=== PATIENT | female | born 1935 | race Caucasian/White ===

== ENCOUNTER 2017-07-27 08:47 | Emergency (ER) | payer MEDICARE ==
[~2017-07-27 08:47] MED LIST: ALBUTEROL SULFATE PO; AMLO5TAB2 PO; DIPH25CA85 PO; IBUP-2077 PO; L.AC1CAP6 PO; LEVO500T89 PO; LOSA1TAB42 PO; MONT10TA24 PO; NAPR-1023 PO; OMEGA Q PLUS PO; PANT40TA25 PO; PRAMIPEXOLE PO; PRAV10TA39 PO; TERA10CA4 PO; TRAM50TA4 PO; TURM1CAP PO; VITAMIN B6 PO; [UNRECOGNIZED DRUG - OTHER] PO; [UNRECOGNIZED DRUG - OTHER] PO; [UNRECOGNIZED DRUG - OTHER] PO
[2017-07-27] MEDS ORDERED: MORPHINE SULFATE 2 MG/ML 1ML SYG ONE (09:57)
[2017-07-27] MEDS ORDERED: ONDANSETRON HCL 4 MG/2 ML VIAL ONE (09:57)
[2017-07-27 10:16] LABS: BASOPHILS % (AUTO) 1.1 % (0.0-5.0); EOSINOPHILS % (AUTO) 2.3 % (0.0-8.0); HEMATOCRIT 37.1 % (36-48); LYMPHOCYTES % (AUTO) 15.9 % (21.0-51.0); MEAN CORPUSCULAR HEMOGLOBIN 30.4 pg (27.0-33.0); MEAN CORPUSCULAR HGB CONC 33.8 g/dL (32.0-36.0); MEAN CORPUSCULAR VOLUME 89.9 fL (79-99); MONOCYTES % (AUTO) 7.6 % (3.0-13.0); NEUTROPHILS % (AUTO) 73.1 % (40.0-77.0); PLATELET COUNT (AUTO) 338 K/uL (130-400); RED BLOOD CELL COUNT(AUTO) 4.13 MIL/uL (4.00-5.50); RED CELL DISTRIBUTION WIDTH 13.2 % (11.0-15.5); WHITE BLOOD COUNT (AUTO) 10.4 K/uL (4.8-10.8)
[2017-07-27 10:23] LABS: CREATININE 1.1 mg/dL (0.5-1.5); POTASSIUM 4.2 mmol/L (3.5-5.1)
[2017-07-27 10:28] LABS: ALBUMIN 3.3 g/dL (3.5-5.0); BILIRUBIN,TOTAL 0.6 mg/dL (0.2-1.0); TOTAL PROTEIN, SERUM 7.3 g/dL (6.0-8.3)
[2017-07-27 11:12] LABS: APPEARANCE,URINE Clear (CLEAR); BILIRUBIN,URINE Negative (NEGATIVE); COLOR,URINE Yellow (YELLOW); GLUCOSE, URINE (UA) Negative (NEGATIVE); KETONES,URINE Negative (NEGATIVE); LEUKOCYTE ESTERASE ,URINE Trace (NEGATIVE); NITRATE,URINE Negative (NEGATIVE); OCCULT BLOOD,URINE Negative (NEGATIVE); PH,URINE 6.5 (5.0-8.0); PROTEIN,URINE Negative (NEGATIVE); UROBILINOGEN,URINE 0.2 mg/dL (0.2-1.0)
[2017-07-27 11:28] LABS: BACTERIA,URINE Rare /HPF (None Seen); SQUAMOUS EPITHELIAL CELL,UR Rare /LPF (0-2); WBC,URINE 0-1 /HPF (0-1)
[2017-07-27] MEDS ORDERED: HYDROMORPHONE HCL 2 MG/ML VIAL ONE (11:59)
[2017-07-27] MEDS ORDERED: FENTANYL 25 MCG/HR PATCH TD ONE (14:06)
== END 2017-07-27 14:48 | disposition home or self-care (01) ==
LOC: EDH 08:47
DX: N13.30 Unspecified hydronephrosis (principal); I10 Essential (primary) hypertension; J45.909 Unspecified asthma, uncomplicated
CPT/HCPCS: 36415; 74176; 80053; 81001; 85025; 96374; 96375; 99285; J1170; J2405

== ENCOUNTER 2017-09-08 10:27 | Emergency (ER) | payer MEDICARE ==
[2017-09-08 11:02] LABS: APPEARANCE,URINE Clear (CLEAR); BILIRUBIN,URINE Negative (NEGATIVE); COLOR,URINE Yellow (YELLOW); GLUCOSE, URINE (UA) Negative (NEGATIVE); KETONES,URINE Negative (NEGATIVE); LEUKOCYTE ESTERASE ,URINE Trace (NEGATIVE); NITRATE,URINE Negative (NEGATIVE); OCCULT BLOOD,URINE Negative (NEGATIVE); PH,URINE 8.5 (5.0-8.0); PROTEIN,URINE Negative (NEGATIVE); UROBILINOGEN,URINE 0.2 mg/dL (0.2-1.0)
[2017-09-08 11:15] LABS: BACTERIA,URINE Rare /HPF (None Seen); WBC,URINE 0-1 /HPF (0-1)
[2017-09-08 11:16] LABS: SQUAMOUS EPITHELIAL CELL,UR Rare /HPF (0-2)
[2017-09-08 11:42] LABS: BASOPHILS % (AUTO) 0.8 % (0.0-5.0); EOSINOPHILS % (AUTO) 1.8 % (0.0-8.0); HEMATOCRIT 36.3 % (36-48); LYMPHOCYTES % (AUTO) 16.7 % (21.0-51.0); MEAN CORPUSCULAR HEMOGLOBIN 29.6 pg (27.0-33.0); MEAN CORPUSCULAR HGB CONC 33.5 g/dL (32.0-36.0); MEAN CORPUSCULAR VOLUME 88.3 fL (79-99); MONOCYTES % (AUTO) 7.6 % (3.0-13.0); NEUTROPHILS % (AUTO) 73.1 % (40.0-77.0); NUCLEATED RED BLOOD CELLS 0.1 % (0.0-0.19); PLATELET COUNT (AUTO) 250 K/uL (130-400); RED BLOOD CELL COUNT(AUTO) 4.11 MIL/uL (4.00-5.50); RED CELL DISTRIBUTION WIDTH 14.2 % (11.0-15.5); WHITE BLOOD COUNT (AUTO) 8.4 K/uL (4.8-10.8)
[2017-09-08] MEDS ORDERED: MORPHINE SULFATE 4 MG/1ML SYG ONE (11:53)
[2017-09-08] MEDS ORDERED: ONDANSETRON ODT 4 MG TAB ONE (11:54)
[2017-09-08 12:09] LABS: POTASSIUM 3.6 mmol/L (3.5-5.1)
[2017-09-08 12:13] LABS: ALBUMIN 3.6 g/dL (3.5-5.0); BILIRUBIN,TOTAL 0.9 mg/dL (0.2-1.0); TOTAL PROTEIN, SERUM 7.5 g/dL (6.0-8.3)
== END 2017-09-08 13:05 | disposition home or self-care (01) ==
LOC: EDH 10:27
DX: G89.29 Other chronic pain (principal); M54.5 Low back pain; J42 Unspecified chronic bronchitis; J45.909 Unspecified asthma, uncomplicated; I10 Essential (primary) hypertension
CPT/HCPCS: 36415; 80053; 81001; 82150; 83690; 85025; 96374; 99284; J2270

== ENCOUNTER 2017-11-20 04:42 | Emergency (ER) | payer MEDICARE ==
[2017-11-20] MEDS ORDERED: HYDROCODONE/ACETAMINOPHEN 7.5/325 MG 15 ML UDCUP ONE (05:03)
[2017-11-20 05:23] LABS: BASOPHILS % (AUTO) 0.9 % (0.0-5.0); EOSINOPHILS % (AUTO) 3.3 % (0.0-8.0); HEMATOCRIT 34.8 % (36-48); MEAN CORPUSCULAR HEMOGLOBIN 30.5 pg (27.0-33.0); MEAN CORPUSCULAR HGB CONC 34.1 g/dL (32.0-36.0); MEAN CORPUSCULAR VOLUME 89.6 fL (79-99); MONOCYTES % (AUTO) 7.1 % (3.0-13.0); NEUTROPHILS % (AUTO) 62.7 % (40.0-77.0); PLATELET COUNT (AUTO) 292 K/uL (130-400); RED BLOOD CELL COUNT(AUTO) 3.89 MIL/uL (4.00-5.50); RED CELL DISTRIBUTION WIDTH 14.9 % (11.0-15.5); WHITE BLOOD COUNT (AUTO) 7.5 K/uL (4.8-10.8)
[2017-11-20 05:32] LABS: APPEARANCE,URINE Cloudy (CLEAR); BILIRUBIN,URINE Negative (NEGATIVE); COLOR,URINE Yellow (YELLOW); GLUCOSE, URINE (UA) Negative (NEGATIVE); KETONES,URINE Negative (NEGATIVE); LEUKOCYTE ESTERASE ,URINE Large (NEGATIVE); NITRATE,URINE Negative (NEGATIVE); OCCULT BLOOD,URINE Trace (NEGATIVE); PH,URINE 7.5 (5.0-8.0); PROTEIN,URINE Negative (NEGATIVE); UROBILINOGEN,URINE 0.2 mg/dL (0.2-1.0)
[2017-11-20 05:33] LABS: POTASSIUM 3.7 mmol/L (3.5-5.1)
[2017-11-20 05:37] LABS: ALBUMIN 3.3 g/dL (3.5-5.0); BILIRUBIN,TOTAL 0.7 mg/dL (0.2-1.0); TOTAL PROTEIN, SERUM 6.9 g/dL (6.0-8.3)
[2017-11-20] MEDS ORDERED: CEFTRIAXONE SODIUM 1 GM ONE (05:48)
[2017-11-20] MEDS ORDERED: LIDOCAINE HCL-MPF 1% 2ML VIAL ONE (05:48)
[2017-11-20 05:52] LABS: BACTERIA,URINE Few /HPF (None Seen)
== END 2017-11-20 06:09 | disposition home or self-care (01) ==
LOC: EDH 04:42
DX: G89.29 Other chronic pain (principal); M54.5 Low back pain; J45.909 Unspecified asthma, uncomplicated; M19.90 Unspecified osteoarthritis, unspecified site; I10 Essential (primary) hypertension
CPT/HCPCS: 36415; 80053; 81001; 85025; 96372; 99284; J0696; J3490

== ENCOUNTER → 2018-03-11 | Outpatient (CLI) | payer MEDICARE ==
[~2018-03-11] MED LIST changes: -AMLO5TAB2 PO; +AMLO5TAB7 PO; +AMOX-426 PO; +FUROSEMIDE 10 MG/ML 4ML VIAL ONE; +TERA5CAP4 PO
== END | disposition home or self-care (01) ==
LOC: RAH 13:35
PROVIDERS: ATTEND Urology
DX: N13.30 Unspecified hydronephrosis (principal)
CPT/HCPCS: 78708; A9562; J1940

== ENCOUNTER 2018-03-15 16:20 | Inpatient (IN) | payer MEDICARE ==
[~2018-03-15] VITALS: Ht 162.6 cm; Wt 63.5 kg
[~2018-03-15 16:20] MED LIST changes: -AMOX-426 PO; -FUROSEMIDE 10 MG/ML 4ML VIAL ONE; -TERA5CAP4 PO
[2018-03-15] MEDS ORDERED: ONDANSETRON ODT 4 MG TAB ONE (17:40)
[2018-03-15] MEDS ORDERED: HYDROMORPHONE 1 MG/1 ML AMP ONE ×2 (17:41→19:40)
[2018-03-15 18:17] LABS: APPEARANCE,URINE Turbid (CLEAR); BILIRUBIN,URINE Negative (NEGATIVE); COLOR,URINE Yellow (YELLOW); GLUCOSE, URINE (UA) Negative (NEGATIVE); KETONES,URINE Negative (NEGATIVE); LEUKOCYTE ESTERASE ,URINE Large (NEGATIVE); NITRATE,URINE Positive (NEGATIVE); OCCULT BLOOD,URINE Small (NEGATIVE); PH,URINE 7.5 (5.0-8.0); PROTEIN,URINE Trace (NEGATIVE); UROBILINOGEN,URINE 0.2 mg/dL (0.2-1.0)
[2018-03-15 18:18] LABS: BASOPHILS % (AUTO) 0.7 % (0.0-5.0); EOSINOPHILS % (AUTO) 1.8 % (0.0-8.0); HEMATOCRIT 39.1 % (36-48); LYMPHOCYTES % (AUTO) 14.4 % (21.0-51.0); MEAN CORPUSCULAR HEMOGLOBIN 29.8 pg (27.0-33.0); MEAN CORPUSCULAR HGB CONC 32.8 g/dL (32.0-36.0); MEAN CORPUSCULAR VOLUME 90.9 fL (79-99); NEUTROPHILS % (AUTO) 75.1 % (40.0-77.0); PLATELET COUNT (AUTO) 228 K/uL (130-400); RED CELL DISTRIBUTION WIDTH 14.5 % (11.0-15.5); WHITE BLOOD COUNT (AUTO) 10.6 K/uL (4.8-10.8)
[2018-03-15 18:24] LABS: WBC,URINE Full Field /HPF (0-1)
[2018-03-15 18:26] LABS: BACTERIA,URINE Few /HPF (None Seen)
[2018-03-15] MEDS ORDERED: CEFTRIAXONE SODIUM 1 GM ONE (18:35)
[2018-03-15] MEDS ORDERED: SODIUM CHLORIDE 0.9% 100 ML IV ONE (18:35)
[2018-03-15 18:40] LABS: BILIRUBIN,TOTAL 0.7 mg/dL (0.2-1.0); POTASSIUM 3.8 mmol/L (3.5-5.1); TOTAL PROTEIN, SERUM 7.4 g/dL (6.0-8.3)
[2018-03-15 18:45] LABS: ALBUMIN 3.1 g/dL (3.5-5.0); CREATININE 1.3 mg/dL (0.5-1.5)
[2018-03-15] MEDS ORDERED: ONDANSETRON HCL 4 MG/2 ML VIAL ONE (19:53)
[2018-03-15 22:54] VITALS: BP 158/79
[2018-03-16] MEDS ORDERED: TERA5CAP4 PO (01:16)
[2018-03-16] MEDS ORDERED: ONDANSETRON HCL MDV 20ML 2 MG/ML VIAL IVP PRN (01:30)
[2018-03-16] MEDS: LEVOFLOXACIN 500 MG/D5W 100 ML 100 ML IV SCH (01:30)
[2018-03-16] MEDS ORDERED: HYDROMORPHONE 1 MG/1 ML AMP IV PRN (01:30)
[2018-03-16] MEDS ORDERED: ACETAMINOPHEN 325 MG TAB PO PRN (01:30)
[2018-03-16] MEDS ORDERED: MORPHINE SULFATE 2 MG/ML 1ML SYG IV PRN (01:30)
[2018-03-16] MEDS ORDERED: SODIUM CHLORIDE 0.9% 1000ML 1,000 ML IV ONE (01:55)
[2018-03-16] MEDS ORDERED: LEVOFLOXACIN 500 MG/D5W 100 ML 100 ML ONE (01:56)
[2018-03-16 03:00] VITALS: BP 142/70
[2018-03-16 05:39] LABS: BASOPHILS % (AUTO) 0.7 % (0.0-5.0); EOSINOPHILS % (AUTO) 1.1 % (0.0-8.0); HEMATOCRIT 36.3 % (36-48); LYMPHOCYTES % (AUTO) 17.9 % (21.0-51.0); MEAN CORPUSCULAR HEMOGLOBIN 30.9 pg (27.0-33.0); MEAN CORPUSCULAR HGB CONC 33.7 g/dL (32.0-36.0); MEAN CORPUSCULAR VOLUME 91.7 fL (79-99); MONOCYTES % (AUTO) 6.3 % (3.0-13.0); PLATELET COUNT (AUTO) 240 K/uL (130-400); RED BLOOD CELL COUNT(AUTO) 3.96 MIL/uL (4.00-5.50); WHITE BLOOD COUNT (AUTO) 8.7 K/uL (4.8-10.8)
[2018-03-16 05:54] LABS: CREATININE 1.1 mg/dL (0.5-1.5); POTASSIUM 3.9 mmol/L (3.5-5.1)
[2018-03-16 07:30] VITALS: BP 114/52
[2018-03-16] MEDS ORDERED: SIMETHICONE 80 MG TAB.CHEW ONE (09:34)
[2018-03-16] MEDS ORDERED: SIMETHICONE 80 MG TAB.CHEW PO PRN (09:45)
[2018-03-16] MEDS: PANTOPRAZOLE SODIUM 40 MG TABLET.DR PO SCH (10:14)
[2018-03-16] MEDS: SODIUM CHLORIDE 0.9% 1000ML 1,000 ML IV SCH (10:16)
[2018-03-16 10:52] VITALS: BP 128/60
[2018-03-16] MEDS: ALBUTEROL SULFATE 0.083% 2.5 MG/3 ML INH IH SCH ×3 (11:19→23:08)
[2018-03-16] MEDS ORDERED: IOHEXOL-350 75 ML VIAL IV ONE (12:14)
[2018-03-16 16:14] VITALS: BP 123/60
[2018-03-16 19:00] VITALS: BP 139/70
[2018-03-16] MEDS: ATORVASTATIN CALCIUM 10 MG TABLET PO SCH (21:00)
[2018-03-16] MEDS: DIPHENHYDRAMINE HCL 25 MG CAPSULE PO SCH (21:00)
[2018-03-16 23:00] VITALS: BP_SYST 126; BP_SYST 128; BP_DIAS 66
[2018-03-17] VITALS (7 sets, daily range): BP systolic 122–154; BP diastolic 60–84
[2018-03-17] MEDS: LEVOFLOXACIN 500 MG/D5W 100 ML 100 ML IV SCH (01:26)
[2018-03-17 05:54] LABS: BASOPHILS % (AUTO) 0.9 % (0.0-5.0); EOSINOPHILS % (AUTO) 3.7 % (0.0-8.0); HEMATOCRIT 36.6 % (36-48); LYMPHOCYTES % (AUTO) 24.9 % (21.0-51.0); MEAN CORPUSCULAR HEMOGLOBIN 30.6 pg (27.0-33.0); MEAN CORPUSCULAR HGB CONC 33.5 g/dL (32.0-36.0); MEAN CORPUSCULAR VOLUME 91.3 fL (79-99); MONOCYTES % (AUTO) 9.4 % (3.0-13.0); NEUTROPHILS % (AUTO) 61.1 % (40.0-77.0); PLATELET COUNT (AUTO) 209 K/uL (130-400); RED BLOOD CELL COUNT(AUTO) 4.01 MIL/uL (4.00-5.50); WHITE BLOOD COUNT (AUTO) 7.8 K/uL (4.8-10.8)
[2018-03-17 06:01] LABS: CREATININE 0.9 mg/dL (0.5-1.5); POTASSIUM 3.6 mmol/L (3.5-5.1)
[2018-03-17] MEDS: ALBUTEROL SULFATE 0.083% 2.5 MG/3 ML INH IH SCH ×3 (06:04→22:58)
[2018-03-17] MEDS: SODIUM CHLORIDE 0.9% 1000ML 1,000 ML IV SCH ×3 (07:22→21:31)
[2018-03-17] MEDS ORDERED: TURMERIC COMPLEX 500 MG PO SCH (09:00)
[2018-03-17] MEDS ORDERED: MONTELUKAST SODIUM 10 MG TAB PO SCH (09:00)
[2018-03-17] MEDS: PANTOPRAZOLE SODIUM 40 MG TABLET.DR PO SCH (09:00)
[2018-03-17] MEDS ORDERED: TERAZOSIN HCL 5 MG CAPSULE PO SCH (09:00)
[2018-03-17] MEDS ORDERED: PYRIDOXINE 100 MG PO SCH (09:00)
[2018-03-17] MEDS ORDERED: HYDROCHLOROTHIAZIDE 25 MG TABLET PO SCH (09:00)
[2018-03-17] MEDS ORDERED: OMEGA Q PLUS PO SCH (09:00)
[2018-03-17] MEDS ORDERED: LACTOBACILLUS RHAMNOSUS GG 1 EACH CAP.SPRINK PO SCH (09:00)
[2018-03-17] MEDS ORDERED: MULTIVITAMIN TABLET PO SCH (09:00)
[2018-03-17] MEDS ORDERED: LOSARTAN 100 MG TABLET PO SCH (09:00)
[2018-03-17] MEDS ORDERED: AMLODIPINE BESYLATE 5 MG TAB PO SCH (09:00)
[2018-03-17] MEDS: ATORVASTATIN CALCIUM 10 MG TABLET PO SCH (21:31)
[2018-03-17] MEDS: DIPHENHYDRAMINE HCL 25 MG CAPSULE PO SCH (21:31)
[2018-03-18 00:02] VITALS: BP 137/67
[2018-03-18] MEDS: LEVOFLOXACIN 500 MG/D5W 100 ML 100 ML IV SCH (01:29)
[2018-03-18] MEDS: SODIUM CHLORIDE 0.9% 1000ML 1,000 ML IV SCH (03:57)
[2018-03-18 04:25] VITALS: BP 136/68
[2018-03-18] MEDS: ALBUTEROL SULFATE 0.083% 2.5 MG/3 ML INH IH SCH (06:18)
[2018-03-18] MEDS ORDERED: AMOX-426 PO (07:35)
[2018-03-18 08:00] VITALS: BP 149/76
== END 2018-03-18 09:05 | disposition home or self-care (01) | DRG 694 ==
LOC: EDH 16:20 → EDHIP 20:45 → 3BH 21:11
PROVIDERS: ADMIT Hospitalist; ATTEND Hospitalist
DX: N13.30 Unspecified hydronephrosis (principal); E87.1 Hypo-osmolality and hyponatremia; E44.1 Mild protein-calorie malnutrition; J44.9 Chronic obstructive pulmonary disease, unspecified; M41.9 Scoliosis, unspecified; M19.90 Unspecified osteoarthritis, unspecified site; I10 Essential (primary) hypertension; Z68.24 Body mass index [BMI] 24.0-24.9, adult; Z83.3 Family history of diabetes mellitus; Z82.49 Family history of ischemic heart disease and other diseases of the circulatory system; Z80.9 Family history of malignant neoplasm, unspecified
CPT/HCPCS: 36415; 74176; 74400; 80048; 80053; 81001; 82948; 85025; 87077; 87088; 87186; 94640; 94664; J0696; J1170; J1956; J2405; J7030; Q0163; Q9967

== ENCOUNTER 2018-03-31 05:47 | Day surgery (SDC) | payer MEDICARE ==
[2018-03-27 13:03] VITALS: BP 154/71
[~2018-03-31] VITALS: Ht 162.6 cm; Wt 63.8 kg
[2018-03-31] VITALS (14 sets, daily range): BP systolic 122–144; BP diastolic 57–70
[2018-03-31] MEDS: CEFAZOLIN SODIUM 1 GM VIAL IVP SCH ×2 (05:00→07:46)
[~2018-03-31 05:47] MED LIST changes: -IBUP-2077 PO; -L.AC1CAP6 PO; -LEVO500T89 PO; -OMEGA Q PLUS PO; -PRAMIPEXOLE PO; -TERA10CA4 PO; +TERA5CAP4 PO; -TRAM50TA4 PO; -TURM1CAP PO; -[UNRECOGNIZED DRUG - OTHER] PO
[2018-03-31] MEDS ORDERED: PHENYLEPHRINE HCL 10 MG/ML 1ML VIAL IV ONE (06:38)
[2018-03-31] MEDS ORDERED: LIDOCAINE PF 2% 5ML ABBOJECT ONE (06:38)
[2018-03-31] MEDS ORDERED: EPHEDRINE SULFATE 50 MG/ML AMPULE ONE (06:39)
[2018-03-31] MEDS ORDERED: FENTANYL CITRATE PF 50 MCG/1 ML 2ML VIAL ONE (06:39)
[2018-03-31] MEDS ORDERED: PROPOFOL 10 MG/ML 20ML VIAL IV ONE (06:39)
[2018-03-31] MEDS ORDERED: LACTATED RINGERS 1000ML 1,000 ML IV ONE (06:40)
[2018-03-31] MEDS ORDERED: FAMOTIDINE/PF 20 MG/2 ML VIAL IV ONE (06:47)
[2018-03-31] MEDS ORDERED: IOHEXOL-350 50ML VIAL IV ONE (07:35)
== END 2018-03-31 11:00 | disposition home or self-care (01) ==
LOC: DAH 05:47
PROVIDERS: ATTEND Surgery
DX: N13.1 Hydronephrosis with ureteral stricture, not elsewhere classified (principal); I10 Essential (primary) hypertension; K21.9 Gastro-esophageal reflux disease without esophagitis; J44.9 Chronic obstructive pulmonary disease, unspecified; M19.90 Unspecified osteoarthritis, unspecified site; F15.90 Other stimulant use, unspecified, uncomplicated; Z98.890 Other specified postprocedural states; Z98.42 Cataract extraction status, left eye; Z98.41 Cataract extraction status, right eye; Z83.3 Family history of diabetes mellitus; Z82.49 Family history of ischemic heart disease and other diseases of the circulatory system
CPT/HCPCS: 52332; 52342; 74420; 87088; 93005; A4358; A4510; A4600; C1726; C1758; C1769 ×2; C2617; J0690; J2001; J2370; J2704; J3010; J3490 ×2; J7120; Q9967

== ENCOUNTER 2018-04-02 06:33 | Emergency (ER) | payer MEDICARE ==
[~2018-04-02 06:33] MED LIST changes: -TERA5CAP4 PO
[2018-04-02 07:03] LABS: BILIRUBIN,URINE NEGATIVE (NEGATIVE); GLUCOSE, URINE (UA) NEGATIVE (NEGATIVE); KETONES,URINE NEGATIVE (NEGATIVE); LEUKOCYTE ESTERASE ,URINE MODERATE (NEGATIVE); NITRATE,URINE NEGATIVE (NEGATIVE); OCCULT BLOOD,URINE LARGE (NEGATIVE); PH,URINE 7.5 (5.0-8.0); PROTEIN,URINE 100 (NEGATIVE); UROBILINOGEN,URINE 0.2 mg/dL (0.2-1.0)
[2018-04-02 07:31] LABS: RBC,URINE TNTC /HPF (0-1)
[2018-04-02 07:32] LABS: BACTERIA,URINE Rare /HPF (None Seen); SQUAMOUS EPITHELIAL CELL,UR Rare /HPF (0-2); WBC,URINE 0-1 /HPF (0-1)
[2018-04-02 07:34] LABS: TRANSITIONAL EPI CELLS,URINE Rare /HPF (None Seen)
[2018-04-02 07:36] LABS: APPEARANCE,URINE TURBID (CLEAR); COLOR,URINE RED (YELLOW)
[2018-04-02] MEDS ORDERED: LEVOFLOXACIN 500 MG TABLET PO SCH (08:30)
== END 2018-04-02 08:54 | disposition home or self-care (01) ==
LOC: EDH 06:33
DX: R31.9 Hematuria, unspecified (principal); J45.909 Unspecified asthma, uncomplicated; I10 Essential (primary) hypertension
CPT/HCPCS: 81001; 87088

== ENCOUNTER 2018-04-21 06:45 | Day surgery (SDC) | payer MEDICARE ==
[2018-04-15 11:29] LABS: BASOPHILS % (AUTO) 1.1 % (0.0-5.0); HEMATOCRIT 40.2 % (36-48); LYMPHOCYTES % (AUTO) 22.5 % (21.0-51.0); MEAN CORPUSCULAR HEMOGLOBIN 30.2 pg (27.0-33.0); MEAN CORPUSCULAR HGB CONC 33.2 g/dL (32.0-36.0); MEAN CORPUSCULAR VOLUME 90.9 fL (79-99); MONOCYTES % (AUTO) 7.5 % (3.0-13.0); NEUTROPHILS % (AUTO) 64.9 % (40.0-77.0); PLATELET COUNT (AUTO) 314 K/uL (130-400); RED BLOOD CELL COUNT(AUTO) 4.42 MIL/uL (4.00-5.50); RED CELL DISTRIBUTION WIDTH 13.9 % (11.0-15.5); WHITE BLOOD COUNT (AUTO) 10.6 K/uL (4.8-10.8)
[2018-04-15 11:31] VITALS: BP 150/78
[2018-04-15 11:36] LABS: CREATININE 0.9 mg/dL (0.5-1.5); POTASSIUM 4.5 mmol/L (3.5-5.1)
[~2018-04-21] VITALS: Ht 162.6 cm; Wt 63.1 kg
[2018-04-21] VITALS (16 sets, daily range): BP systolic 148–165; BP diastolic 74–89
[~2018-04-21 06:45] MED LIST changes: -ALBUTEROL SULFATE PO; +ASCO500T9 PO; +ASPI-1181 PO; +TERA5CAP4 PO; -VITAMIN B6 PO; -[UNRECOGNIZED DRUG - OTHER] PO; -[UNRECOGNIZED DRUG - OTHER] PO
[2018-04-21] MEDS ORDERED: SODIUM CHLORIDE 0.9% 1000ML 1,000 ML IV ONE (07:16)
[2018-04-21] MEDS ORDERED: LIDOCAINE PF 2% 5ML ABBOJECT ONE (07:17)
[2018-04-21] MEDS ORDERED: DEXAMETHASONE SOD PHOSPHATE 10MG/ML 1ML VIAL ONE (07:17)
[2018-04-21] MEDS ORDERED: PROPOFOL 10 MG/ML 20ML VIAL IV ONE (07:18)
[2018-04-21] MEDS ORDERED: ONDANSETRON HCL 4 MG/2 ML VIAL ONE (07:18)
[2018-04-21] MEDS ORDERED: FENTANYL CITRATE PF 50 MCG/1 ML 2ML VIAL ONE (07:18)
[2018-04-21] MEDS: CEFAZOLIN SODIUM 1 GM VIAL IVP SCH ×2 (07:39→08:18)
[2018-04-21] MEDS ORDERED: LACTATED RINGERS 1000ML 1,000 ML IV ONE (07:41)
[2018-04-21] MEDS ORDERED: IPRATROPIUM/ALBUTEROL SULFATE 3 ML SOLUTION IH ONE (09:18)
== END 2018-04-21 10:06 | disposition home or self-care (01) ==
LOC: DAH 06:45
PROVIDERS: ATTEND Surgery
DX: N13.30 Unspecified hydronephrosis (principal); Z83.3 Family history of diabetes mellitus; Z82.49 Family history of ischemic heart disease and other diseases of the circulatory system; Z98.890 Other specified postprocedural states; Z79.899 Other long term (current) drug therapy; I10 Essential (primary) hypertension; K21.9 Gastro-esophageal reflux disease without esophagitis; M54.5 Low back pain; M54.30 Sciatica, unspecified side; J44.9 Chronic obstructive pulmonary disease, unspecified; M19.90 Unspecified osteoarthritis, unspecified site
CPT/HCPCS: 36415; 52310; 80048; 85025; 87088; 93005; 94640; A4358; J0690; J2001; J2405; J2704; J3010; J7030; J7120; J1100

== ENCOUNTER → 2018-05-20 | Outpatient (CLI) | payer MEDICARE | END | disposition home or self-care (01) | LOC: LAB 11:39 | PROVIDERS: ATTEND Surgery | DX: N13.30 Unspecified hydronephrosis (principal) | CPT/HCPCS: 36415; 82565; 84520 ==

== ENCOUNTER → 2018-05-23 | Outpatient (CLI) | payer MEDICARE ==
[~2018-05-23] MED LIST changes: +IOHEXOL 350 MG/ML 100ML INFUS..BTL IV ONE
== END | disposition home or self-care (01) ==
LOC: RAH 08:42
PROVIDERS: ATTEND Surgery
DX: M41.86 Other forms of scoliosis, lumbar region (principal); M47.896 Other spondylosis, lumbar region; M19.90 Unspecified osteoarthritis, unspecified site
CPT/HCPCS: 74400; Q9967

== ENCOUNTER → 2018-11-05 | Outpatient (CLI) | payer MEDICARE ==
[~2018-11-05] MED LIST changes: -AMLO5TAB7 PO; +AMLO5TAB9 PO; -IOHEXOL 350 MG/ML 100ML INFUS..BTL IV ONE
== END | disposition home or self-care (01) ==
LOC: SHCH 12:38
PROVIDERS: ATTEND Internal Medicine Cardiovascular Disease
DX: I65.23 Occlusion and stenosis of bilateral carotid arteries (principal); I05.8 Other rheumatic mitral valve diseases; I11.9 Hypertensive heart disease without heart failure; I25.10 Atherosclerotic heart disease of native coronary artery without angina pectoris
CPT/HCPCS: 93306; 93880

== ENCOUNTER 2019-05-10 18:25 | Emergency (ER) | payer MEDICARE ==
[2019-05-10 19:03] LABS: BASOPHILS % (AUTO) 0.7 % (0.0-5.0); EOSINOPHILS % (AUTO) 1.5 % (0.0-8.0); HEMATOCRIT 39.2 % (36-48); LYMPHOCYTES % (AUTO) 17.1 % (21.0-51.0); MEAN CORPUSCULAR HEMOGLOBIN 30.9 pg (27.0-33.0); MEAN CORPUSCULAR HGB CONC 33.1 g/dL (32.0-36.0); MEAN CORPUSCULAR VOLUME 93.5 fL (79-99); MONOCYTES % (AUTO) 7.8 % (3.0-13.0); NEUTROPHILS % (AUTO) 72.9 % (40.0-77.0); NUCLEATED RED BLOOD CELLS 0.1 % (0.0-0.19); PLATELET COUNT (AUTO) 220 K/uL (130-400); RED CELL DISTRIBUTION WIDTH 15.3 % (11.0-15.5)
[2019-05-10 19:15] LABS: CREATININE 0.8 mg/dL (0.5-1.5); POTASSIUM 4.2 mmol/L (3.5-5.1)
[2019-05-10] MEDS ORDERED: KETOROLAC TROMETHAMINE 30MG/ML ONE (19:19)
[2019-05-10 19:20] LABS: ALBUMIN 3.5 g/dL (3.5-5.0); BILIRUBIN,DIRECT 0.1 mg/dL (0.0-0.3); BILIRUBIN,TOTAL 0.7 mg/dL (0.2-1.0); TOTAL PROTEIN, SERUM 7.3 g/dL (6.0-8.3)
[2019-05-10] MEDS ORDERED: DIAZEPAM 5 MG TABLET ONE (19:20)
[2019-05-10] MEDS ORDERED: SODIUM CHLORIDE 0.9% 1000ML 1,000 ML IV ONE (19:21)
[2019-05-10 21:01] LABS: APPEARANCE,URINE Cloudy (CLEAR); BILIRUBIN,URINE Negative (NEGATIVE); COLOR,URINE Yellow (YELLOW); GLUCOSE, URINE (UA) Negative (NEGATIVE); KETONES,URINE Negative (NEGATIVE); LEUKOCYTE ESTERASE ,URINE Small (NEGATIVE); NITRATE,URINE Negative (NEGATIVE); OCCULT BLOOD,URINE Negative (NEGATIVE); PROTEIN,URINE POS 1+ mg/dL (NEGATIVE)
[2019-05-10 21:16] LABS: AMORPHOUS SEDIMENT,UR Few /LPF (None Seen); BACTERIA,URINE Moderate /HPF (None Seen); MUCUS,URINE Few LPF (None Seen); SQUAMOUS EPITHELIAL CELL,UR 0-2 /HPF (0-2)
== END 2019-05-10 22:08 | disposition home or self-care (01) ==
LOC: EDH 18:25
DX: R10.9 Unspecified abdominal pain (principal); N13.30 Unspecified hydronephrosis; J45.909 Unspecified asthma, uncomplicated; I10 Essential (primary) hypertension; Z98.890 Other specified postprocedural states
CPT/HCPCS: 36415; 74176; 80048; 80076; 81001; 82550; 83690; 84484; 85025; 93005; 96374; 99285; J1885; J7030

== ENCOUNTER → 2019-07-08 | Outpatient (CLI) | payer MEDICARE | END | disposition home or self-care (01) | LOC: RAH 11:10 | PROVIDERS: ATTEND Urology | DX: N28.89 Other specified disorders of kidney and ureter (principal); N32.89 Other specified disorders of bladder; Q62.11 Congenital occlusion of ureteropelvic junction | CPT/HCPCS: 76770 ==

== ENCOUNTER 2020-02-05 08:05 | Inpatient (IN) | payer MEDICARE ==
[~2020-02-05 08:05] MED LIST changes: +ASCO500T20 PO; -ASCO500T9 PO; -ASPI-1181 PO; +ASPI-1443 PO; -MONT10TA24 PO; +MONT10TA26 PO; -PANT40TA25 PO; +PANT40TA54 PO
[2020-02-05] MEDS ORDERED: ONDANSETRON HCL 4 MG/2 ML VIAL ONE (08:34)
[2020-02-05] MEDS ORDERED: MORPHINE SULFATE 4 MG/1ML SYG ONE (08:34)
[2020-02-05 08:39] LABS: BASOPHILS % (AUTO) 0.5 % (0.0-5.0); EOSINOPHILS % (AUTO) 1.6 % (0.0-8.0); HEMATOCRIT 45.4 % (36-48); LYMPHOCYTES % (AUTO) 24.7 % (21.0-51.0); MEAN CORPUSCULAR HGB CONC 32.2 g/dL (32.0-36.0); MEAN CORPUSCULAR VOLUME 93.2 fL (79-99); MONOCYTES % (AUTO) 6.9 % (3.0-13.0); PLATELET COUNT (AUTO) 246 K/uL (130-400); RED BLOOD CELL COUNT(AUTO) 4.87 MIL/uL (4.00-5.50); RED CELL DISTRIBUTION WIDTH 14.4 % (11.0-15.5); WHITE BLOOD COUNT (AUTO) 10.9 K/uL (4.8-10.8)
[2020-02-05 08:57] LABS: ALBUMIN 3.6 g/dL (3.5-5.0); BILIRUBIN,TOTAL 0.8 mg/dL (0.2-1.0); CREATININE 0.9 mg/dL (0.5-1.5); POTASSIUM 3.7 mmol/L (3.5-5.1); TOTAL PROTEIN, SERUM 7.7 g/dL (6.0-8.3)
[2020-02-05 09:14] LABS: B-TYPE NATRIURETIC PEPTIDE 766 pg/mL (0-100)
[2020-02-05 09:29] LABS: APPEARANCE,URINE Clear (CLEAR); BILIRUBIN,URINE Negative (NEGATIVE); COLOR,URINE Yellow (YELLOW); GLUCOSE, URINE (UA) Negative (NEGATIVE); KETONES,URINE Negative (NEGATIVE); LEUKOCYTE ESTERASE ,URINE Trace (NEGATIVE); NITRATE,URINE Negative (NEGATIVE); OCCULT BLOOD,URINE Negative (NEGATIVE); PROTEIN,URINE POS 1+ mg/dL (NEGATIVE); UROBILINOGEN,URINE 0.2 mg/dL (0.2-1.0)
[2020-02-05 09:48] LABS: RBC,URINE 0-1 /HPF (0-1)
[2020-02-05 09:49] LABS: BACTERIA,URINE Few /HPF (None Seen)
[2020-02-05 09:50] LABS: YEAST,URINE BUDDING Few /HPF (None Seen)
[2020-02-05] MEDS ORDERED: ASPIRIN 325 MG TABLET ONE (10:43)
[2020-02-05] MEDS ORDERED: ACETAMINOPHEN 325 MG TAB PO PRN ×2 (11:00)
[2020-02-05] MEDS ORDERED: LACTULOSE 20 GM/30 ML UDCUP PO PRN (11:00)
[2020-02-05] MEDS ORDERED: HYDRALAZINE HCL 20 MG/ML VIAL IV PRN (11:00)
[2020-02-05] MEDS ORDERED: MORPHINE SULFATE 2 MG/ML 1ML SYG IV PRN (11:00)
[2020-02-05] MEDS ORDERED: ONDANSETRON HCL 4 MG/2 ML VIAL IV PRN (11:00)
[2020-02-05 11:36] LABS: MAGNESIUM 1.7 mg/dL (1.80-2.40); THYROID STIMULATING HORMONE 2.56 uIU/mL (0.36-3.74)
[2020-02-05 11:54] LABS: INR 0.94 (0.85-1.15); PARTIAL THROMBOPLASTIN TIME 25.4 SEC (26.3-35.5); PROTHROMBIN TIME 10.2 SEC (9.6-11.6)
[2020-02-05 12:50] LABS: CHOLESTEROL 166 mg/dL (<200); HDL CHOLESTEROL 66 mg/dL (35-85); LDL DIRECT 78 mg/dL (0-99); TRIGLYCERIDES 68 mg/dL (30-200)
[2020-02-05 12:51] LABS: CRP QUANTITATIVE 9.1 mg/L (0.00-9.0)
[2020-02-05] MEDS ORDERED: LOSARTAN 50 MG TABLET PO SCH (15:00)
[2020-02-05] MEDS ORDERED: CEFTRIAXONE SODIUM 1 GM IVP SCH (15:00)
[2020-02-05] MEDS ORDERED: ALBUTEROL INHALER 90MCG/INH IH PRN (15:00)
[2020-02-05] MEDS ORDERED: AMLODIPINE BESYLATE 2.5 MG TAB PO SCH (16:00)
[2020-02-05] MEDS ORDERED: CEFTRIAXONE SODIUM 1 GM ONE (16:02)
[2020-02-05] MEDS ORDERED: LOSARTAN 50 MG TABLET ONE (16:02)
[2020-02-05] MEDS ORDERED: MAGNESIUM 2GM PREMIX 50ML 50 ML IV ONE (16:03)
[2020-02-05] MEDS ORDERED: FLUTICASONE/VILANTEROL 1 EACH AER.POW.BA IH SCH (18:00)
[2020-02-05] MEDS ORDERED: METHYLPREDNISOLONE SOD SUCC 40MG/ML 1ML ONE (20:23)
[2020-02-05] MEDS ORDERED: DOXYCYCLINE HYCLATE 100 MG TABLET PO ONE (20:24)
[2020-02-05] MEDS ORDERED: FAMOTIDINE 20MG TAB 20 MG TAB ONE (20:24)
[2020-02-05] MEDS ORDERED: ATORVASTATIN CALCIUM 20 MG TABLET ONE (20:24)
[2020-02-05] MEDS ORDERED: MORPHINE SULFATE 2 MG/ML 1ML SYG ONE (20:25)
[2020-02-05] MEDS ORDERED: METOPROLOL TARTRATE 25 MG TAB ONE (20:25)
[2020-02-05] MEDS ORDERED: DOXYCYCLINE HYCLATE 100 MG TABLET PO SCH (21:00)
[2020-02-05] MEDS ORDERED: METHYLPREDNISOLONE SOD SUCC 40MG/ML 1ML IVP SCH (21:00)
[2020-02-05] MEDS ORDERED: ATORVASTATIN CALCIUM 20 MG TABLET PO SCH (21:00)
[2020-02-05] MEDS ORDERED: METOPROLOL TARTRATE 25 MG TAB PO SCH (21:00)
[2020-02-05] MEDS ORDERED: FAMOTIDINE 20MG TAB 20 MG TAB PO SCH (21:00)
[2020-02-06 06:02] LABS: BASOPHILS % (AUTO) 0.3 % (0.0-5.0); EOSINOPHILS % (AUTO) 0.1 % (0.0-8.0); HEMATOCRIT 44.8 % (36-48); MEAN CORPUSCULAR HEMOGLOBIN 30.1 pg (27.0-33.0); MEAN CORPUSCULAR HGB CONC 31.7 g/dL (32.0-36.0); MEAN CORPUSCULAR VOLUME 95.1 fL (79-99); MONOCYTES % (AUTO) 3.7 % (3.0-13.0); NEUTROPHILS % (AUTO) 81.6 % (40.0-77.0); PLATELET COUNT (AUTO) 252 K/uL (130-400); RED BLOOD CELL COUNT(AUTO) 4.71 MIL/uL (4.00-5.50); RED CELL DISTRIBUTION WIDTH 14.4 % (11.0-15.5); WHITE BLOOD COUNT (AUTO) 6.8 K/uL (4.8-10.8)
[2020-02-06 06:25] LABS: CREATININE 0.8 mg/dL (0.5-1.5); POTASSIUM 4.4 mmol/L (3.5-5.1)
[2020-02-06] MEDS ORDERED: METOPROLOL TARTRATE 25 MG TAB ONE (08:39)
[2020-02-06] MEDS ORDERED: ASPIRIN 325 MG TABLET ONE (08:39)
[2020-02-06] MEDS ORDERED: METHYLPREDNISOLONE SOD SUCC 40MG/ML 1ML ONE ×2 (08:39→21:22)
[2020-02-06] MEDS ORDERED: ENOXAPARIN SODIUM 30 MG/0.3 ML SQ ONE (08:39)
[2020-02-06] MEDS ORDERED: FAMOTIDINE/PF 20 MG/2 ML VIAL IV ONE (08:40)
[2020-02-06] MEDS ORDERED: DOXYCYCLINE HYCLATE 100 MG TABLET PO ONE ×3 (08:41→21:22)
[2020-02-06] MEDS ORDERED: ENOXAPARIN SODIUM 30 MG/0.3 ML SQ SCH (09:00)
[2020-02-06] MEDS ORDERED: ASPIRIN 325 MG TABLET PO SCH (09:00)
[2020-02-06] MEDS ORDERED: LOSARTAN 50 MG TABLET ONE (13:17)
[2020-02-06] MEDS ORDERED: AMLODIPINE BESYLATE 5 MG TAB ONE (13:17)
[2020-02-06] MEDS ORDERED: AMLODIPINE BESYLATE 2.5 MG TAB PO SCH (13:50)
[2020-02-06] MEDS ORDERED: LOSARTAN 50 MG TABLET PO SCH (13:50)
[2020-02-06] MEDS ORDERED: CEFTRIAXONE SODIUM 1 GM ONE (15:57)
[2020-02-06] MEDS ORDERED: SODIUM CHLORIDE 0.9% 50 ML IV ONE (15:57)
--- NOTE | 2020-02-06 18:48 | NUR ---
INITIAL SW spoke with patient's daughter, Marilyn Elias. Patient lives alone but daughter, Marilyn lives next door. Patient has no home services. DME: BPM, glucometer (no insulin), nebulizer, walker, cane. Patient is able to complete ADL's independently and drives. PCP is Dr. Tavon Willams. Pharmacy is [facility] in [place]. DCP is home. Addendum: 02/06/20 at 1850 by KATIE FINN SS Amended: Links added.
[2020-02-06] MEDS ORDERED: FUROSEMIDE 10 MG/ML 2ML VIAL IV SCH (19:10)
[2020-02-06] MEDS ORDERED: LORAZEPAM 2 MG/ML 1 ML VIAL ONE (19:55)
[2020-02-06] MEDS ORDERED: FAMOTIDINE 20MG TAB 20 MG TAB ONE ×2 (20:46→21:23)
[2020-02-06] MEDS ORDERED: ATORVASTATIN CALCIUM 20 MG TABLET ONE ×2 (20:46→21:23)
[2020-02-06] MEDS ORDERED: LORAZEPAM 2 MG/ML 1 ML VIAL IM ONE (21:15)
[2020-02-06] MEDS ORDERED: FUROSEMIDE 10 MG/ML 2ML VIAL ONE (21:30)
[2020-02-07] MEDS ORDERED: AMLODIPINE BESYLATE 2.5 MG TAB PO SCH (09:00)
[2020-02-07] MEDS ORDERED: LOSARTAN 50 MG TABLET PO SCH (09:00)
[2020-02-07] MEDS ORDERED: METOPROLOL SUCCINATE 50 MG TAB.SR.24H PO SCH (09:00)
== END 2020-02-07 01:20 | disposition left against medical advice (07) | DRG 551 ==
LOC: EDH 08:05 → EDHIP 10:55 → OBSVTOIN 10:55
PROVIDERS: ADMIT Internal Medicine; ATTEND Internal Medicine
DX: M51.26 Other intervertebral disc displacement, lumbar region (principal); I50.21 Acute systolic (congestive) heart failure; J44.1 Chronic obstructive pulmonary disease with (acute) exacerbation; I16.0 Hypertensive urgency; J45.909 Unspecified asthma, uncomplicated; M19.90 Unspecified osteoarthritis, unspecified site; Z83.3 Family history of diabetes mellitus; Z80.9 Family history of malignant neoplasm, unspecified; Z82.49 Family history of ischemic heart disease and other diseases of the circulatory system; I11.0 Hypertensive heart disease with heart failure
CPT/HCPCS: 36415; 71045; 72131; 74176; 80048; 80053; 80061; 81001; 82728; 83605; 83615; 83735; 83880; 84145; 84443; 84484; 85025; 85378; 85610; 85730; 86140; 87040; 87426; 93005; 93306; 93356; G0378; J0696; J1650; J1940; J2060; J2270; J2405; J2920; J3475; J3490; U0003

== ENCOUNTER 2020-02-07 03:20 | Inpatient (IN) | payer MEDICARE ==
[~2020-02-07] VITALS: Ht 154.9 cm; Wt 61.0 kg
[2020-02-07] MEDS ORDERED: HALOPERIDOL LACTATE 5 MG/ML VIAL ONE (03:47)
[2020-02-07 04:08] LABS: BASOPHILS % (AUTO) 0.3 % (0.0-5.0); EOSINOPHILS % (AUTO) 2.1 % (0.0-8.0); HEMATOCRIT 44.7 % (36-48); LYMPHOCYTES % (AUTO) 10.3 % (21.0-51.0); MEAN CORPUSCULAR HEMOGLOBIN 30.1 pg (27.0-33.0); MEAN CORPUSCULAR VOLUME 94.1 fL (79-99); MONOCYTES % (AUTO) 2.9 % (3.0-13.0); NEUTROPHILS % (AUTO) 84.1 % (40.0-77.0); PLATELET COUNT (AUTO) 225 K/uL (130-400); RED BLOOD CELL COUNT(AUTO) 4.75 MIL/uL (4.00-5.50); RED CELL DISTRIBUTION WIDTH 14.1 % (11.0-15.5); WHITE BLOOD COUNT (AUTO) 7.6 K/uL (4.8-10.8)
[2020-02-07] MEDS ORDERED: KETOROLAC TROMETHAMINE 15MG/ML ONE (04:08)
[2020-02-07] MEDS ORDERED: LIDOCAINE 5% TOPICAL PATCH TP ONE (04:08)
[2020-02-07] MEDS ORDERED: SODIUM CHLORIDE 0.9% 500ML 500 ML IV ONE (04:09)
[2020-02-07] MEDS ORDERED: ONDANSETRON HCL 4 MG/2 ML VIAL IV PRN (04:15)
[2020-02-07] MEDS ORDERED: ACETAMINOPHEN 325 MG TAB PO PRN (04:15)
[2020-02-07] MEDS ORDERED: NITROGLYCERIN 1GM/1 INCH PACKET TD ONE ×2 (04:30→07:52)
[2020-02-07] MEDS ORDERED: IOHEXOL-350 75 ML VIAL IV ONE (04:38)
[2020-02-07] MEDS ORDERED: IOHEXOL 350 MG/ML 100ML INFUS..BTL IV ONE (04:38)
[2020-02-07] MEDS ORDERED: ALBUTEROL SULFATE 0.083% 2.5 MG/3 ML INH IH PRN (05:00)
[2020-02-07] MEDS ORDERED: HYDRALAZINE HCL 20 MG/ML VIAL IV PRN (05:15)
[2020-02-07] MEDS: IPRATROPIUM/ALBUTEROL SULFATE 3 ML SOLUTION IH SCH ×3 (06:00→21:31)
[2020-02-07] MEDS ORDERED: ENOXAPARIN SODIUM 80 MG/0.8 ML SQ ONE (06:02)
[2020-02-07] MEDS ORDERED: ASPIRIN 81MG TAB.CHEW ONE (07:51)
[2020-02-07] MEDS ORDERED: AMLODIPINE BESYLATE 5 MG TAB ONE (07:51)
[2020-02-07] MEDS ORDERED: PANTOPRAZOLE SODIUM 40 MG TABLET.DR ONE (07:52)
[2020-02-07] MEDS ORDERED: HYDROCHLOROTHIAZIDE 25 MG TABLET ONE (07:53)
[2020-02-07] MEDS ORDERED: METOPROLOL TARTRATE 25 MG TAB ONE (07:53)
[2020-02-07] MEDS ORDERED: NAPROXEN 500 MG TABLET ONE (07:53)
[2020-02-07] MEDS ORDERED: LOSARTAN 50 MG TABLET ONE (07:54)
[2020-02-07 08:30] VITALS: BP 157/103
--- NOTE | 2020-02-07 08:30 | NUR ---
ADMISSION PT RECEIVED FROM ER VIA STRETCHER, PT DISORIENTED AND UNCOOPERATIVE. RE-ORIENTED AND REDIRECTED NEEDED. FALL PRECAUTION
[2020-02-07] MEDS ORDERED: ENOXAPARIN SODIUM 1 MG/KG SQ SCH (09:00)
[2020-02-07] MEDS ORDERED: ENOXAPARIN SODIUM 40 MG/0.4 ML SYRINGE SQ SCH (09:00)
[2020-02-07] MEDS ORDERED: NON-FORMULARY MEDICATION 1 EACH (Losartan/Hydrochlorothiazide (Losartan-Hctz 100-12.5 mg T PO SCH (09:00)
[2020-02-07] MEDS ORDERED: NAPROXEN 500 MG TABLET PO SCH (09:00)
[2020-02-07] MEDS: NITROGLYCERIN 1GM/1 INCH PACKET TD SCH ×3 (12:15→19:33)
[2020-02-07 12:24] VITALS: BP 151/101
--- NOTE | 2020-02-07 12:30 | NUR ---
CONFUSION PT CONTINUES TO BE CONFUSED, MORE COOPERATIVE. REDIRECTED NEEDED.
[2020-02-07] MEDS: MONTELUKAST SODIUM 10 MG TAB PO SCH (12:44)
[2020-02-07] MEDS: AMLODIPINE BESYLATE 5 MG TAB PO SCH (12:45)
[2020-02-07] MEDS: PANTOPRAZOLE SODIUM 40 MG TABLET.DR PO SCH (12:45)
[2020-02-07] MEDS: METOPROLOL TARTRATE 25 MG TAB PO SCH ×2 (12:46→19:33)
[2020-02-07] MEDS: HYDROCHLOROTHIAZIDE 25 MG TABLET PO SCH (12:46)
[2020-02-07] MEDS: LOSARTAN 100 MG TABLET PO SCH (12:46)
[2020-02-07] MEDS: ASPIRIN 81MG TAB.CHEW PO SCH (12:47)
--- NOTE | 2020-02-07 15:21 | NUR ---
INITIAL SW spoke with patient's daughter, Marilyn Elias. Patient lives alone but daughter, Marilyn lives next door. Patient has no home services. DME: BPM, glucometer (no insulin), nebulizer, walker, cane. Patient is able to complete ADL's independently and drives. PCP is Dr. Tavon Willams. Pharmacy is [facility] on [facility] in [place]. DCP is home. Patient was in the hospital on 02/05/2020 and left AMA on 02/07/2020 and then was readmiited on 02/07/2020. As per daughterMarilyn, patient became very upset, restless and insisting on going home last night. Daughter stated that she tried to convince her to stay and physically tried to keep her from crawling off the bed but was finally exhausted and thought taking her home with help settle patient down. Daughter states that once patient went home she continued to act confused and unreasonable and was advised by paramedics to have patient return to the hospital. Daughter states that this behavior is new for patient and family is concerned. Addendum: 02/07/20 at 1526 by KATIE FINN SS Amended: Links added.
[2020-02-07 15:44] VITALS: BP 132/86
--- NOTE | 2020-02-07 18:00 | NUR ---
PM ASSESSMENT PT MORE CALM AND LESS CONFUSED. SITTING UP IN CHAIR. DENIES CHEST PAIN OR DISCOMFORT, NO SOB OR LABORED RESPIRATIONS.
--- NOTE | 2020-02-07 18:30 | NUR ---
LABS MEG SPRAY STAINER MADE AWARE OF ABNORMAL LABS, NEW ORDERS RECEIVED. PT DENIES CHEST PAIN, STATES WANTING TO GO HOME. REDIRECTED AND REORIENTED NEEDED, POSITIVE REDIRECTION GIVEN
--- NOTE | 2020-02-07 19:00 | NUR ---
IV PT AWAKE AND ALERT, REMOVED IV . ATTEMPTED TO RE-INSERT IV, PT REFUSED. EDUCATED ON IMPORTANCE OF HAVING IV IN CASE OF EMERGENCY, PT REFUSED. PT OFFERED TO CATH IN AND OUT, REFUSED AT THIS TIME.
[2020-02-07] MEDS ORDERED: ATORVASTATIN CALCIUM 20 MG TABLET ONE (19:23)
[2020-02-07] MEDS ORDERED: TERAZOSIN HCL 5 MG CAPSULE ONE (19:23)
[2020-02-07] MEDS ORDERED: ENOXAPARIN SODIUM 60 MG/0.6 ML SQ ONE (19:24)
[2020-02-07] MEDS: ATORVASTATIN CALCIUM 20 MG TABLET PO SCH (19:33)
[2020-02-07] MEDS: TERAZOSIN HCL 5 MG CAPSULE PO SCH (19:33)
[2020-02-07] MEDS: ENOXAPARIN SODIUM 60 MG/0.6 ML SQ SCH (19:33)
[2020-02-07 20:19] VITALS: BP 145/94
[2020-02-08] VITALS (7 sets, daily range): BP systolic 112–161; BP diastolic 64–103
--- NOTE | 2020-02-08 01:23 | NUR ---
assessment patient is alert and oriented times 4 no complaints of any pain. patient converted [facility] sinus [facility] I asked the patient if she has ever had a-fib before and she said no. I got a 12 lead ekg to confirm the a-fib and called the immigration officer for Dr. Jay Franz, i told him what was going on and he said that she is having a controlled rhythm 90's to low 100's. to call tomorrow after 8am to the [facility] and consult Dr. Joes Arteaga. and if i have anymore problems to call the hospitalist feliberto.
[2020-02-08] MEDS: NITROGLYCERIN 1GM/1 INCH PACKET TD SCH ×2 (03:38→11:26)
[2020-02-08] MEDS: IPRATROPIUM/ALBUTEROL SULFATE 3 ML SOLUTION IH SCH ×4 (03:42→23:09)
[2020-02-08 06:37] LABS: BASOPHILS % (AUTO) 0.7 % (0.0-5.0); EOSINOPHILS % (AUTO) 0.5 % (0.0-8.0); HEMATOCRIT 39.6 % (36-48); LYMPHOCYTES % (AUTO) 24.1 % (21.0-51.0); MEAN CORPUSCULAR HEMOGLOBIN 30.5 pg (27.0-33.0); MEAN CORPUSCULAR HGB CONC 33.1 g/dL (32.0-36.0); MEAN CORPUSCULAR VOLUME 92.3 fL (79-99); NEUTROPHILS % (AUTO) 66.5 % (40.0-77.0); PLATELET COUNT (AUTO) 211 K/uL (130-400); RED BLOOD CELL COUNT(AUTO) 4.29 MIL/uL (4.00-5.50); RED CELL DISTRIBUTION WIDTH 14.1 % (11.0-15.5); WHITE BLOOD COUNT (AUTO) 8.1 K/uL (4.8-10.8)
[2020-02-08 07:04] LABS: CREATININE 0.9 mg/dL (0.5-1.5); MAGNESIUM 1.8 mg/dL (1.80-2.40); POTASSIUM 3.6 mmol/L (3.5-5.1); TOTAL PROTEIN, SERUM 6.1 g/dL (6.0-8.3)
[2020-02-08 07:48] LABS: INR 1.01 (0.85-1.15); PARTIAL THROMBOPLASTIN TIME 27.6 SEC (26.3-35.5); PROTHROMBIN TIME 10.9 SEC (9.6-11.6)
[2020-02-08] MEDS: ENOXAPARIN SODIUM 60 MG/0.6 ML SQ SCH ×2 (08:41→20:53)
[2020-02-08] MEDS: ASPIRIN 81MG TAB.CHEW PO SCH (08:42)
[2020-02-08] MEDS: LOSARTAN 100 MG TABLET PO SCH (08:42)
[2020-02-08] MEDS: MONTELUKAST SODIUM 10 MG TAB PO SCH (08:42)
[2020-02-08] MEDS: METOPROLOL TARTRATE 25 MG TAB PO SCH ×2 (08:43→20:52)
[2020-02-08] MEDS: HYDROCHLOROTHIAZIDE 25 MG TABLET PO SCH (08:43)
[2020-02-08] MEDS: AMLODIPINE BESYLATE 5 MG TAB PO SCH (08:43)
[2020-02-08] MEDS: PANTOPRAZOLE SODIUM 40 MG TABLET.DR PO SCH (08:46)
[2020-02-08] MEDS: FUROSEMIDE 10 MG/ML 2ML VIAL IV SCH ×2 (09:40→20:53)
--- NOTE | 2020-02-08 10:12 | NUR ---
CALLED AND SPOKE WITH HERNÁN CALLES FROM [employer] ( [phone]) BACK STIMULATOR BATTERY CHECKED FOR PATIENT AND READ 2.5. PER HERNÁN DEVICE IS GOOD AND IS WHERE PATIENT NEEDS TO HAVE IT. ALSO HE STATED THAT PATIENT IS AWARE AND KNOWS HOW TO WORK HER OWN DEVICE. ANY FURTHER QUESTIONS WE CAN CERTAINLY CALL HIM BACK. WILL INFORM DR. NINA. REPORTED OFF TO PRIMARY CARE NURSEKAREN.
--- NOTE | 2020-02-08 12:12 | NUR ---
Report given to Mo MENJIVAR. Pt in stable condition. no complaints offered
--- NOTE | 2020-02-08 12:45 | NUR ---
RECEIVED TRANSFER TO ROOM 427. AAOX3, RESP.'S EVEN AND UNLABORED. DENIES ANY C/O SOB, DENIES ANY C/O PAIN. ORIENTED TO ROOM AND SURROUNDINGS. CALL LIGHT WITHIN REACH, VERBALIZED ABILITY TO USE. BED LOW, SIDE RAILS UPX2.
--- NOTE | 2020-02-08 13:17 | NUR ---
DR. MARTEL IN ROOM SPEAKING WITH PT. RE:PLAN OF CARE. QUESTIONS ANSWERED.
--- NOTE | 2020-02-08 13:40 | NUR ---
DR. Joycelyn HOLLAND IN ROOM WITH PT. FOR CONSULT.
--- NOTE | 2020-02-08 16:46 | NUR ---
DR. Rajani COSTELLO IN ROOM WITH PT. FOR CONSULT.
[2020-02-08] MEDS: TERAZOSIN HCL 5 MG CAPSULE PO SCH (20:52)
[2020-02-08] MEDS: ATORVASTATIN CALCIUM 20 MG TABLET PO SCH (20:52)
[2020-02-09 03:28] VITALS: BP 140/66
[2020-02-09 03:50] LABS: BASOPHILS % (AUTO) 0.5 % (0.0-5.0); EOSINOPHILS % (AUTO) 0.5 % (0.0-8.0); HEMATOCRIT 38.3 % (36-48); LYMPHOCYTES % (AUTO) 23.5 % (21.0-51.0); MEAN CORPUSCULAR HEMOGLOBIN 30.2 pg (27.0-33.0); MEAN CORPUSCULAR HGB CONC 33.2 g/dL (32.0-36.0); MEAN CORPUSCULAR VOLUME 91.2 fL (79-99); MONOCYTES % (AUTO) 10.4 % (3.0-13.0); NEUTROPHILS % (AUTO) 64.9 % (40.0-77.0); PLATELET COUNT (AUTO) 199 K/uL (130-400); WHITE BLOOD COUNT (AUTO) 8.8 K/uL (4.8-10.8)
[2020-02-09 04:03] LABS: CREATININE 1.1 mg/dL (0.5-1.5)
[2020-02-09] MEDS ORDERED: LIDOCAINE HCL-MPF 1% 2ML VIAL IV PRN (05:00)
[2020-02-09] MEDS ORDERED: POTASSIUM CHLORIDE 10% ELIXIR 20 MEQ/15 ML UDCUP PO PRN (05:00)
[2020-02-09] MEDS ORDERED: POTASSIUM CHLORIDE 20MEQ/100ML 100 ML IV PRN (05:00)
[2020-02-09] MEDS: POTASSIUM CHLORIDE 20 MEQ ERTAB PO PRN ×4 (05:29→20:27)
[2020-02-09] MEDS: IPRATROPIUM/ALBUTEROL SULFATE 3 ML SOLUTION IH SCH ×3 (06:48→19:04)
[2020-02-09 08:00] VITALS: BP 123/66
[2020-02-09] MEDS: LOSARTAN 100 MG TABLET PO SCH (09:11)
[2020-02-09] MEDS: FUROSEMIDE 10 MG/ML 2ML VIAL IV SCH ×2 (09:11→20:26)
[2020-02-09] MEDS: PANTOPRAZOLE SODIUM 40 MG TABLET.DR PO SCH (09:11)
[2020-02-09] MEDS: AMLODIPINE BESYLATE 5 MG TAB PO SCH (09:12)
[2020-02-09] MEDS: ASPIRIN 81MG TAB.CHEW PO SCH (09:12)
[2020-02-09] MEDS: METOPROLOL TARTRATE 25 MG TAB PO SCH ×2 (09:12→20:27)
[2020-02-09] MEDS: MONTELUKAST SODIUM 10 MG TAB PO SCH (09:12)
[2020-02-09] MEDS: ENOXAPARIN SODIUM 60 MG/0.6 ML SQ SCH ×2 (09:19→20:26)
[2020-02-09 11:00] VITALS: BP 112/68
--- NOTE | 2020-02-09 12:49 | NUR ---
Og HECK PA-C, IN ROOM SPEAKING WITH PT. RE:PLAN OF CARE.
--- NOTE | 2020-02-09 13:39 | NUR ---
RECEIVED CALL FROM PT.'S DAUGHTER, BARBIE ROY, QUESTIONS ANSWERED AND UPDATED ON STATUS. VERBALIZED UNDERSTANDING.
--- NOTE | 2020-02-09 15:56 | NUR ---
NOTIFIED BY BREAD WRAPPER, PT. EXPERIENCED 3 SECONDS T-TACH. UPON ENTERING ROOM, PT. SITTING UP ON SIDE OF BED. SMILING AND STATES "I DIDN'T EVEN FEEL ANYTHING," WHEN NOTIFIED OF V-TACH. STATES," LOOK AT ME, I FEEL FINE." ADVISED ON BR DUE TO ARRHYTHMIA, VERBALIZED UNDERSTANDING. CALL LIGHT WITHIN REACH.
[2020-02-09 16:00] VITALS: BP 132/69
--- NOTE | 2020-02-09 16:08 | NUR ---
NOTIFIED Og HECK PA-C, RE:PT. EXPERIENCED ASYMPTOMATIC V-TACH, 3 SECONDS; VERBALIZED UNDERSTANDING. NO NEW ORDERS RECEIVED AT THIS TIME.
--- NOTE | 2020-02-09 17:38 | NUR ---
SPOKE WITH PT.'S DAUGHTER, BARBIE ROY, PER PT.'S REQUEST AND INFORMED OF PT.'S EPISODE OF V-TACH. ARRHYTHMIA EXPLAINED TO PT.'S DAUGHTER WELL PT.; VERBALIZED MUTUAL UNDERSTANDING.
[2020-02-09 20:00] VITALS: BP 168/66
[2020-02-09] MEDS: TERAZOSIN HCL 5 MG CAPSULE PO SCH (20:27)
[2020-02-09] MEDS: ATORVASTATIN CALCIUM 20 MG TABLET PO SCH (20:27)
[2020-02-09] MEDS: APIXABAN 5 MG TABLET PO SCH (20:27)
[2020-02-09] MEDS ORDERED: PRAM0.129 PO (22:42)
[2020-02-09] MEDS: IPRATROPIUM 0.5 MG/2.5 ML INH IH SCH (23:24)
[2020-02-10] VITALS (7 sets, daily range): BP systolic 109–136; BP diastolic 58–71
[2020-02-10] MEDS: ACETAMINOPHEN 325 MG TAB PO PRN (03:56)
[2020-02-10] MEDS: IPRATROPIUM 0.5 MG/2.5 ML INH IH SCH ×4 (06:17→23:49)
[2020-02-10 06:26] LABS: CREATININE 1.2 mg/dL (0.5-1.5); MAGNESIUM 1.8 mg/dL (1.80-2.40); POTASSIUM 3.4 mmol/L (3.5-5.1)
[2020-02-10] MEDS: ENOXAPARIN SODIUM 60 MG/0.6 ML SQ SCH ×2 (09:00→20:38)
[2020-02-10] MEDS: APIXABAN 5 MG TABLET PO SCH ×2 (09:31→20:34)
[2020-02-10] MEDS: LOSARTAN 100 MG TABLET PO SCH (09:31)
[2020-02-10] MEDS: METOPROLOL TARTRATE 25 MG TAB PO SCH ×2 (09:32→20:35)
[2020-02-10] MEDS: FUROSEMIDE 10 MG/ML 2ML VIAL IV SCH ×2 (09:32→20:37)
[2020-02-10] MEDS: PANTOPRAZOLE SODIUM 40 MG TABLET.DR PO SCH (09:32)
[2020-02-10] MEDS: MONTELUKAST SODIUM 10 MG TAB PO SCH (09:32)
[2020-02-10] MEDS: POTASSIUM CHLORIDE 20 MEQ ERTAB PO PRN ×2 (09:34→16:42)
[2020-02-10] MEDS: DIPHENHYDRAMINE HCL 25 MG CAPSULE PO SCH (20:35)
[2020-02-10] MEDS: ATORVASTATIN CALCIUM 20 MG TABLET PO SCH (20:35)
[2020-02-10] MEDS: PRAMIPEXOLE DI-HCL 0.25 MG TABLET PO SCH (20:36)
[2020-02-10] MEDS: TERAZOSIN HCL 5 MG CAPSULE PO SCH (20:37)
[2020-02-10] MEDS: MAGNESIUM 2GM PREMIX 50ML 50 ML IV SCH (20:40)
[2020-02-11 03:12] VITALS: BP 136/68
[2020-02-11 07:41] VITALS: BP 139/74
[2020-02-11] MEDS: ENOXAPARIN SODIUM 60 MG/0.6 ML SQ SCH (07:48)
[2020-02-11] MEDS: IPRATROPIUM 0.5 MG/2.5 ML INH IH SCH ×4 (07:49→23:24)
[2020-02-11] MEDS: LOSARTAN 100 MG TABLET PO SCH (07:58)
[2020-02-11] MEDS: APIXABAN 5 MG TABLET PO SCH ×2 (07:58→21:04)
[2020-02-11] MEDS: METOPROLOL TARTRATE 25 MG TAB PO SCH ×2 (07:59→21:04)
[2020-02-11] MEDS: MONTELUKAST SODIUM 10 MG TAB PO SCH (07:59)
[2020-02-11] MEDS: PANTOPRAZOLE SODIUM 40 MG TABLET.DR PO SCH (07:59)
[2020-02-11] MEDS: MORPHINE SULFATE 4 MG/1ML SYG IV PRN ×2 (08:00→18:00)
[2020-02-11 08:58] LABS: CREATININE 1.2 mg/dL (0.5-1.5); MAGNESIUM 2.2 mg/dL (1.80-2.40); POTASSIUM 3.8 mmol/L (3.5-5.1)
[2020-02-11] MEDS: FUROSEMIDE 10 MG/ML 2ML VIAL IV SCH ×2 (09:15→21:06)
[2020-02-11 12:00] VITALS: BP 122/71
[2020-02-11] MEDS: REGADENOSON 0.4 MG/5 ML PF SYG IVP SCH ×2 (14:30→15:31)
[2020-02-11 20:18] VITALS: BP 143/74
[2020-02-11] MEDS: DIPHENHYDRAMINE HCL 25 MG CAPSULE PO SCH (21:02)
[2020-02-11] MEDS: ATORVASTATIN CALCIUM 20 MG TABLET PO SCH (21:03)
[2020-02-11] MEDS: TERAZOSIN HCL 5 MG CAPSULE PO SCH (21:04)
[2020-02-11] MEDS: PRAMIPEXOLE DI-HCL 0.25 MG TABLET PO SCH (21:05)
--- NOTE | 2020-02-12 02:31 | NUR ---
RECEIVED REPORT FROM ROHINI CAPPS NURSE, RESUMED CARE, HEAD TO TOE AND SHIFT ASSESSMENT DONE, TIMED MEDICATION GIVEN, PT AWAKE AT 230 REQUESTED A BATH ASSISTED BY [place] NURSE AID, 24 CC DONE, SAFETY MAINTAINED, BED IN LOWEST POSITION, CALL [place] IN REACHED , WILL CONTINUE TO MONITOR.
[2020-02-12 04:22] VITALS: BP 126/64
[2020-02-12] MEDS: MORPHINE SULFATE 4 MG/1ML SYG IV PRN (05:52)
[2020-02-12] MEDS: IPRATROPIUM 0.5 MG/2.5 ML INH IH SCH ×4 (07:16→23:08)
--- NOTE | 2020-02-12 07:40 | NUR ---
ASSESSMENT ENCOUNTERED PT A&OX3, CALM COOPERATIVE AND DOES NOT APPEAR TO BE IN ANY DISTRESS NOR ANY NEURO DEFICITS PRESENT. PT DENIES PAIN, SOB, NAUSEA. PT IS AMBULATORY, GAIT SLOW BUT STEADY WITH STAND BY ASSIST. PT TO BE NPO UNTIL SEEN BY CARDIOLOGY FOR POSSIBLE LHC. CALL LIGHT WITHIN REACH.
[2020-02-12] MEDS: MONTELUKAST SODIUM 10 MG TAB PO SCH (08:42)
[2020-02-12] MEDS: METOPROLOL TARTRATE 25 MG TAB PO SCH ×2 (08:43→21:03)
[2020-02-12] MEDS: FUROSEMIDE 10 MG/ML 2ML VIAL IV SCH ×2 (08:43→21:09)
[2020-02-12] MEDS: LOSARTAN 100 MG TABLET PO SCH (08:43)
[2020-02-12] MEDS: PANTOPRAZOLE SODIUM 40 MG TABLET.DR PO SCH (08:43)
[2020-02-12 08:46] LABS: INR 1.12 (0.85-1.15); PARTIAL THROMBOPLASTIN TIME 32.9 SEC (26.3-35.5)
[2020-02-12] MEDS ORDERED: HEPARIN SODIUM 5000UNIT/ML 1ML VIAL SQ PRN (09:30)
[2020-02-12 09:33] VITALS: BP 130/69
[2020-02-12 11:58] VITALS: BP 123/57
[2020-02-12] MEDS: HEPARIN 25000 UNITS/250 ML D5W 250 ML IV SCH ×2 (12:03→21:21)
[2020-02-12 17:05] VITALS: BP 95/63
[2020-02-12 20:00] VITALS: BP 121/63
[2020-02-12] MEDS: PRAMIPEXOLE DI-HCL 0.25 MG TABLET PO SCH (21:01)
[2020-02-12] MEDS: TERAZOSIN HCL 5 MG CAPSULE PO SCH (21:02)
[2020-02-12] MEDS: DIPHENHYDRAMINE HCL 25 MG CAPSULE PO SCH (21:03)
[2020-02-12] MEDS: ATORVASTATIN CALCIUM 20 MG TABLET PO SCH (21:03)
[2020-02-12 23:55] VITALS: BP 111/59
[2020-02-13 03:44] VITALS: BP 130/70
[2020-02-13] MEDS: IPRATROPIUM 0.5 MG/2.5 ML INH IH SCH ×4 (07:02→23:18)
--- NOTE | 2020-02-13 07:30 | NUR ---
ASSESSMENT ENCOUNTERED PT ASLEEP BUT AROUSEABLE, A&OX3, CALM COOPERATIVE AND DOES NOT APPEAR TO BE IN ANY DISTRESS NOR ANY NEURO DEFICITS PRESENT. PT DENIES PAIN, SOB, NAUSEA. PT IS AMBULATORY, GAIT SLOW BUT STEADY WITH STAND BY ASSIST, HEPARIN DRIP PER PROTOCOL IN PLACE, CALL LIGHT WITHIN REACH.
[2020-02-13 07:43] VITALS: BP 150/101
[2020-02-13] MEDS: MONTELUKAST SODIUM 10 MG TAB PO SCH (08:55)
[2020-02-13] MEDS: FUROSEMIDE 10 MG/ML 2ML VIAL IV SCH (08:56)
[2020-02-13] MEDS: LOSARTAN 100 MG TABLET PO SCH (08:56)
[2020-02-13] MEDS: PANTOPRAZOLE SODIUM 40 MG TABLET.DR PO SCH (08:56)
[2020-02-13] MEDS: METOPROLOL TARTRATE 25 MG TAB PO SCH ×2 (08:56→21:20)
[2020-02-13 11:32] VITALS: BP 137/49
[2020-02-13] MEDS: ACETAMINOPHEN 325 MG TAB PO PRN (13:44)
[2020-02-13 16:30] VITALS: BP 102/48
[2020-02-13] MEDS: HEPARIN 25000 UNITS/250 ML D5W 250 ML IV SCH (18:34)
[2020-02-13 20:47] VITALS: BP 124/57
[2020-02-13] MEDS: ATORVASTATIN CALCIUM 20 MG TABLET PO SCH (21:21)
[2020-02-13] MEDS: TERAZOSIN HCL 5 MG CAPSULE PO SCH (21:21)
[2020-02-13] MEDS: DIPHENHYDRAMINE HCL 25 MG CAPSULE PO SCH (21:21)
[2020-02-13] MEDS: PRAMIPEXOLE DI-HCL 0.25 MG TABLET PO SCH (21:21)
[2020-02-13] MEDS: DOCUSATE SODIUM 100 MG CAP PO SCH (22:15)
[2020-02-13] MEDS ORDERED: DOCUSATE SODIUM 100 MG CAP PO ONE (22:16)
[2020-02-13 23:58] VITALS: BP 104/52
[2020-02-14 04:15] VITALS: BP 133/70
[2020-02-14 06:08] LABS: CREATININE 1.5 mg/dL (0.5-1.5); POTASSIUM 3.4 mmol/L (3.5-5.1)
[2020-02-14] MEDS: POTASSIUM CHLORIDE 20 MEQ ERTAB PO PRN ×3 (06:32→14:02)
[2020-02-14] MEDS: IPRATROPIUM 0.5 MG/2.5 ML INH IH SCH ×3 (06:45→19:11)
--- NOTE | 2020-02-14 08:00 | NUR ---
PT AAO X 3 REVIEW PLAN OF CARE AND CALL LIGHT IN REACH.
--- NOTE | 2020-02-14 08:30 | NUR ---
PT AND PTT LABS DONE, DUE TO PT IS ON A HEPARIN DRIP PROTOCOL AT SCALE NO CHANGES STAYING AT 7 UNIT / HR , CHECK ALSO WITH [facility] TO CONFIRM. NO CHANGES AND PUMP SETUP RATE . PT AND PTT SETUP FOR AM.
[2020-02-14 08:52] VITALS: BP 129/75
[2020-02-14] MEDS: DOCUSATE SODIUM 100 MG CAP PO SCH ×2 (09:04→22:15)
[2020-02-14] MEDS: METOPROLOL TARTRATE 25 MG TAB PO SCH ×2 (09:04→21:40)
[2020-02-14] MEDS: LOSARTAN 100 MG TABLET PO SCH (09:04)
[2020-02-14] MEDS: PANTOPRAZOLE SODIUM 40 MG TABLET.DR PO SCH (09:05)
[2020-02-14] MEDS: MONTELUKAST SODIUM 10 MG TAB PO SCH (09:05)
[2020-02-14] MEDS: FUROSEMIDE 20 MG TABLET PO SCH (09:05)
[2020-02-14 11:54] VITALS: BP 106/52
[2020-02-14] MEDS: MORPHINE SULFATE 2 MG/ML 1ML SYG IVP PRN ×2 (14:37→18:42)
[2020-02-14 19:26] VITALS: BP 128/67
[2020-02-14 20:48] VITALS: BP 152/63
[2020-02-14] MEDS: PRAMIPEXOLE DI-HCL 0.25 MG TABLET PO SCH (21:00)
[2020-02-14] MEDS ORDERED: HYDROMORPHONE HCL 0.5 MG/0.5 ML ML ONE (21:38)
[2020-02-14] MEDS: DIPHENHYDRAMINE HCL 25 MG CAPSULE PO SCH (21:40)
[2020-02-14] MEDS: ATORVASTATIN CALCIUM 20 MG TABLET PO SCH (21:40)
[2020-02-14] MEDS: TERAZOSIN HCL 5 MG CAPSULE PO SCH (21:40)
[2020-02-14] MEDS ORDERED: HYDROMORPHONE HCL 0.5 MG/0.5 ML ML IVP PRN (21:45)
[2020-02-14 23:47] VITALS: BP 116/61
[2020-02-15] VITALS (11 sets, daily range): BP systolic 120–181; BP diastolic 58–74
[2020-02-15] MEDS: IPRATROPIUM 0.5 MG/2.5 ML INH IH SCH ×5 (00:09→23:40)
--- NOTE | 2020-02-15 04:05 | NUR ---
STOPPED PT'S HEPARIN.
[2020-02-15 05:56] LABS: HEMATOCRIT 38.2 % (36-48); MEAN CORPUSCULAR HEMOGLOBIN 30.3 pg (27.0-33.0); MEAN CORPUSCULAR HGB CONC 32.7 g/dL (32.0-36.0); MEAN CORPUSCULAR VOLUME 92.5 fL (79-99); RED BLOOD CELL COUNT(AUTO) 4.13 MIL/uL (4.00-5.50); RED CELL DISTRIBUTION WIDTH 13.5 % (11.0-15.5); WHITE BLOOD COUNT (AUTO) 8.9 K/uL (4.8-10.8)
[2020-02-15 06:03] LABS: CREATININE 1.4 mg/dL (0.5-1.5); POTASSIUM 4.8 mmol/L (3.5-5.1)
[2020-02-15 06:06] LABS: PARTIAL THROMBOPLASTIN TIME 34.8 SEC (26.3-35.5); PROTHROMBIN TIME 10.8 SEC (9.6-11.6)
--- NOTE | 2020-02-15 07:31 | NUR ---
DR MENDOZA SPOKE WITH DR POLANCO ABOUT THE STOPPING PT'S HEPARIN AT 0400. DR MENDOZA STATED THAT WAS FINE.
[2020-02-15] MEDS ORDERED: ISOPROTERENOL HCL 0.2 MG/ML AMP/VIAL/BAG ONE (08:12)
[2020-02-15] MEDS ORDERED: LIDOCAINE HCL 2% 20ML ONE (08:13)
[2020-02-15] MEDS ORDERED: MIDAZOLAM HCL 1 MG/ML 2ML VIAL ONE (08:13)
[2020-02-15] MEDS ORDERED: MEPERIDINE-PF 25 MG/ML SYG ONE (08:13)
[2020-02-15] MEDS: DOCUSATE SODIUM 100 MG CAP PO SCH ×2 (09:00→21:58)
[2020-02-15] MEDS: LOSARTAN 100 MG TABLET PO SCH (11:51)
[2020-02-15] MEDS: FUROSEMIDE 20 MG TABLET PO SCH (11:51)
[2020-02-15] MEDS: METOPROLOL TARTRATE 25 MG TAB PO SCH ×2 (11:51→21:57)
[2020-02-15] MEDS: MONTELUKAST SODIUM 10 MG TAB PO SCH (11:51)
[2020-02-15] MEDS: PANTOPRAZOLE SODIUM 40 MG TABLET.DR PO SCH (11:51)
--- NOTE | 2020-02-15 12:52 | NUR ---
RDSCREEN - LOS X 8 Pt admitted with Back pain. Hx HTN, Asthma, CHF. Heart healthy diet order in place, Poor PO intake. Monitored labs: Na 135, GFR 38, BNP 651, Alb 3.0, BUN 29. Advanced age (84 y/o). New onset AFib. Recommend Fluid Restriction 1500mL/day Recommend Ensure TID RD to continue to monitor. Please notify as additional nutrition concerns arise. Thank you. Addendum: 02/15/20 at [address] Amended: Links added.
[2020-02-15] MEDS: MORPHINE SULFATE 2 MG/ML 1ML SYG IVP PRN (16:53)
[2020-02-15] MEDS: PRAMIPEXOLE DI-HCL 0.25 MG TABLET PO SCH (21:55)
[2020-02-15] MEDS: ATORVASTATIN CALCIUM 20 MG TABLET PO SCH (21:57)
[2020-02-15] MEDS: APIXABAN 5 MG TABLET PO SCH (21:57)
[2020-02-15] MEDS: TERAZOSIN HCL 5 MG CAPSULE PO SCH (21:57)
[2020-02-15] MEDS: DIPHENHYDRAMINE HCL 25 MG CAPSULE PO SCH (21:57)
[2020-02-16 00:20] VITALS: BP 128/67
[2020-02-16 03:28] VITALS: BP 144/66
[2020-02-16] MEDS: IPRATROPIUM 0.5 MG/2.5 ML INH IH SCH ×4 (07:01→23:32)
[2020-02-16 07:30] VITALS: BP 147/75
[2020-02-16 08:48] LABS: BASOPHILS % (AUTO) 0.6 % (0.0-5.0); EOSINOPHILS % (AUTO) 0.8 % (0.0-8.0); HEMATOCRIT 39.3 % (36-48); LYMPHOCYTES % (AUTO) 19.6 % (21.0-51.0); MEAN CORPUSCULAR HEMOGLOBIN 30.8 pg (27.0-33.0); MEAN CORPUSCULAR HGB CONC 33.1 g/dL (32.0-36.0); MEAN CORPUSCULAR VOLUME 93.1 fL (79-99); MONOCYTES % (AUTO) 8.2 % (3.0-13.0); NEUTROPHILS % (AUTO) 70.5 % (40.0-77.0); PLATELET COUNT (AUTO) 196 K/uL (130-400); RED BLOOD CELL COUNT(AUTO) 4.22 MIL/uL (4.00-5.50); RED CELL DISTRIBUTION WIDTH 13.8 % (11.0-15.5)
[2020-02-16 09:05] LABS: CREATININE 1.1 mg/dL (0.5-1.5); MAGNESIUM 1.5 mg/dL (1.80-2.40); POTASSIUM 4.3 mmol/L (3.5-5.1)
[2020-02-16] MEDS: PANTOPRAZOLE SODIUM 40 MG TABLET.DR PO SCH (09:32)
[2020-02-16] MEDS: METOPROLOL TARTRATE 25 MG TAB PO SCH ×2 (09:32→21:49)
[2020-02-16] MEDS: APIXABAN 5 MG TABLET PO SCH ×2 (09:32→21:49)
[2020-02-16] MEDS: LOSARTAN 100 MG TABLET PO SCH (09:32)
[2020-02-16] MEDS: DOCUSATE SODIUM 100 MG CAP PO SCH ×2 (09:32→21:51)
[2020-02-16] MEDS: MONTELUKAST SODIUM 10 MG TAB PO SCH (09:33)
[2020-02-16] MEDS: FUROSEMIDE 20 MG TABLET PO SCH (09:33)
[2020-02-16] MEDS: LACTULOSE 20 GM/30 ML UDCUP PO PRN ×2 (09:39→14:37)
[2020-02-16 11:00] VITALS: BP 113/75
--- NOTE | 2020-02-16 11:00 | NUR ---
CM NOTE/[facility] MEET WITH PATIENT IN ROOM, SHEYLA OBTAINED FOR [facility]. [facility] REQUEST FAXED WELL EMAILED TO MITALI LOZANO, [facility] [employer] TRANSPORTATION MANAGER. CM TO FOLLOW UP FOR VEST. PRIMARY NURSE, BRETT MENJIVAR, AWARE.
[2020-02-16] MEDS: MAGNESIUM 2GM PREMIX 50ML 50 ML IV SCH (11:30)
[2020-02-16] MEDS ORDERED: BISACODYL 10 MG SUPP.RECT RC SCH (12:30)
[2020-02-16 16:00] VITALS: BP 162/60
--- NOTE | 2020-02-16 17:18 | NUR ---
CM NOTE/[facility] FOLLOW UP PER SIMIN JASMINE STILL UNDER PROCESS. CM TO FOLLOW UP TOMORROW. MAHESH MENJIVAR, CHARGE NURSE, MADE AWARE. DR. VANCE ALSO MADE AWARE.
[2020-02-16 17:20] LABS: HEMATOCRIT 39.7 % (36-48)
--- NOTE | 2020-02-16 17:48 | NUR ---
CM NOTE/[facility] APPROVED EMAIL RECEIVED FROM MITALI AT [employer] [facility], VEST APPROVED, PENDING DELIVERY.
--- NOTE | 2020-02-16 20:00 | NUR ---
LIFE VEST REFUSAL MONICA WITH THE [employer] CAME TO FIT PATIENT WITH A LIFEVEST AND THE PATIENT REFUSED SAYING THAT SHE DOES NOT WANT IT.
[2020-02-16 20:12] VITALS: BP 132/70
[2020-02-16] MEDS: TERAZOSIN HCL 5 MG CAPSULE PO SCH (21:49)
[2020-02-16] MEDS: ATORVASTATIN CALCIUM 20 MG TABLET PO SCH (21:49)
[2020-02-16] MEDS: PRAMIPEXOLE DI-HCL 0.25 MG TABLET PO SCH (21:49)
[2020-02-16] MEDS: DIPHENHYDRAMINE HCL 25 MG CAPSULE PO SCH (21:49)
[2020-02-17 04:16] VITALS: BP 129/54
[2020-02-17] MEDS: IPRATROPIUM 0.5 MG/2.5 ML INH IH SCH ×2 (07:10→11:28)
[2020-02-17 07:12] LABS: BASOPHILS % (AUTO) 0.6 % (0.0-5.0); EOSINOPHILS % (AUTO) 1.4 % (0.0-8.0); HEMATOCRIT 38.8 % (36-48); MEAN CORPUSCULAR HEMOGLOBIN 30.2 pg (27.0-33.0); MEAN CORPUSCULAR HGB CONC 32.7 g/dL (32.0-36.0); MEAN CORPUSCULAR VOLUME 92.2 fL (79-99); MONOCYTES % (AUTO) 8.7 % (3.0-13.0); PLATELET COUNT (AUTO) 184 K/uL (130-400); RED BLOOD CELL COUNT(AUTO) 4.21 MIL/uL (4.00-5.50); RED CELL DISTRIBUTION WIDTH 13.6 % (11.0-15.5); WHITE BLOOD COUNT (AUTO) 7.7 K/uL (4.8-10.8)
[2020-02-17 07:26] LABS: CREATININE 1.1 mg/dL (0.5-1.5); MAGNESIUM 1.8 mg/dL (1.80-2.40); POTASSIUM 4.1 mmol/L (3.5-5.1)
[2020-02-17 09:18] VITALS: BP 105/60
[2020-02-17] MEDS: PANTOPRAZOLE SODIUM 40 MG TABLET.DR PO SCH (09:40)
[2020-02-17] MEDS: DOCUSATE SODIUM 100 MG CAP PO SCH (09:40)
[2020-02-17] MEDS: APIXABAN 5 MG TABLET PO SCH (09:40)
[2020-02-17] MEDS: FUROSEMIDE 20 MG TABLET PO SCH (09:40)
[2020-02-17] MEDS: LOSARTAN 100 MG TABLET PO SCH (09:40)
[2020-02-17] MEDS: METOPROLOL TARTRATE 25 MG TAB PO SCH (09:40)
[2020-02-17] MEDS: MONTELUKAST SODIUM 10 MG TAB PO SCH (09:40)
--- NOTE | 2020-02-17 10:15 | NUR ---
LIFEVEST REFUSAL/DR MENDOZA UPDATED PT ON PHONE SPEAKING WITH VIKI ROY AND MYSELF AND STATED "I DO NOT WANT THE LIFEVEST". DR MENDOZA UPDATED ABOUT REFUSAL, NO ORDERS RECEIVED.
[2020-02-17 12:17] VITALS: BP 111/59
--- NOTE | 2020-02-17 13:43 | NUR ---
RECEIVED CALL FROM [facility], PATIENT HAD RUN OF NON SUSTAINED VTACH 10 BEATS LASTING APPROX [address] VANCE MADE AWARE. NO NEW ORDERS. CONTINUE WITH PLANNED DISCHARGE. DR. VANCE AND DR. MENDOZA AWARE PATIENT REFUSED LIFE [facility]ST
--- NOTE | 2020-02-17 16:23 | NUR ---
DISCHARGE INSTRUCTIONS GIVEN TO PATIENT, MADE AWARE OF ALL FOLLOW UP APPOINTMENTS MADE FOR HER WITH PCP DR. DIAZ, DR. SAM, AND DR. GONZALEZ. INSTRUCTED TO MAKE FOLLOW UP APPOINTMENT WITH KELLY IN ONE WEEK. MADE AWARE OF ALL NEW PRESCRIPTIONS INCLUDING ELIQUIS, METOPROLOL, LASIX, AND LOSARTAN. INSTRUCTED WHAT MEDICATIONS TO STOP. PATIENT VOICED UNDERSTANDING. EDUCATION PROVIDED ON ELIQUIS.PATIENT AT THIS TIME DENIES ANY CHEST PAIN OR SHORTNESS OF BREATH, DENIES PALPITATIONS. IVS TO RIGHT AND LEFT FOREARM REMOVED. TELE REMOVED. PATIENT WILL BE PICKED UP BY FAMILY MEMBER
== END 2020-02-17 16:44 | disposition home or self-care (01) | DRG 273 ==
LOC: EDH 03:20 → OBSVTOIN 04:13 → EDHIP 04:13 → 4AH 08:53 → 4DH 02-08 12:25
PROVIDERS: ADMIT Internal Medicine; ATTEND Internal Medicine
PROC: 4A023FZ Measurement of Cardiac Rhythm, Percutaneous Approach (ICD-10-PCS; principal; 2020-02-07)
PROC: 4A0234Z Measurement of Cardiac Electrical Activity, Percutaneous Approach (ICD-10-PCS; 2020-02-07)
DX: I11.0 Hypertensive heart disease with heart failure (principal); I21.A1 Myocardial infarction type 2; I26.99 Other pulmonary embolism without acute cor pulmonale; D68.59 Other primary thrombophilia; I47.2 Ventricular tachycardia; Q21.1 Atrial septal defect; I16.0 Hypertensive urgency; I50.43 Acute on chronic combined systolic (congestive) and diastolic (congestive) heart failure; I42.9 Cardiomyopathy, unspecified; M54.5 Low back pain; I48.0 Paroxysmal atrial fibrillation; Z20.828 Contact with and (suspected) exposure to other viral communicable diseases; G89.29 Other chronic pain; M19.90 Unspecified osteoarthritis, unspecified site; I25.10 Atherosclerotic heart disease of native coronary artery without angina pectoris; J44.9 Chronic obstructive pulmonary disease, unspecified; I35.8 Other nonrheumatic aortic valve disorders; E78.5 Hyperlipidemia, unspecified; I49.3 Ventricular premature depolarization; Z79.01 Long term (current) use of anticoagulants; Z86.711 Personal history of pulmonary embolism; Z96.82 Presence of neurostimulator; Z82.49 Family history of ischemic heart disease and other diseases of the circulatory system
CPT/HCPCS: 36415; 70450; 71275; 78452; 80048; 80053; 83735; 83880; 84132; 84484; 85014; 85018; 85025; 85027; 85378; 85610; 85730; 93005; 93017; 93620; 93623; 93970; 94640; 94664; 96374; 99156; 99157; A9500; C1730; C1894; G0378; J1170; J1630; J1644; J1650; J1885; J1940; J2175; J2250; J2270; J2405; J2785; J3475; J3490; J7040; Q0163; Q9967; U0003

== ENCOUNTER → 2020-03-22 | Outpatient (CLI) | payer MEDICARE ==
[~2020-03-22] MED LIST changes: +PRAM0.129 PO
== END | disposition home or self-care (01) ==
LOC: SHCH 12:47
PROVIDERS: ATTEND Internal Medicine Cardiovascular Disease
DX: I42.0 Dilated cardiomyopathy (principal)
CPT/HCPCS: 93306

== ENCOUNTER 2020-04-15 09:00 | Day surgery (SDC) | payer MEDICARE ==
[2020-04-13 14:32] LABS: BASOPHILS % (AUTO) 0.7 % (0.0-5.0); EOSINOPHILS % (AUTO) 2.2 % (0.0-8.0); HEMATOCRIT 41.3 % (36-48); LYMPHOCYTES % (AUTO) 26.7 % (21.0-51.0); MEAN CORPUSCULAR HEMOGLOBIN 30.4 pg (27.0-33.0); MEAN CORPUSCULAR HGB CONC 31.5 g/dL (32.0-36.0); MEAN CORPUSCULAR VOLUME 96.7 fL (79-99); MONOCYTES % (AUTO) 10.4 % (3.0-13.0); NEUTROPHILS % (AUTO) 59.7 % (40.0-77.0); PLATELET COUNT (AUTO) 233 K/uL (130-400); RED BLOOD CELL COUNT(AUTO) 4.27 MIL/uL (4.00-5.50); RED CELL DISTRIBUTION WIDTH 13.6 % (11.0-15.5); WHITE BLOOD COUNT (AUTO) 7.3 K/uL (4.8-10.8)
[2020-04-13 14:40] LABS: CREATININE 0.8 mg/dL (0.5-1.5); POTASSIUM 3.4 mmol/L (3.5-5.1)
[2020-04-13 14:42] LABS: INR 1.02 (0.85-1.15); PARTIAL THROMBOPLASTIN TIME 29.9 SEC (26.3-35.5)
[2020-04-14 14:04] VITALS: BP 146/69
--- NOTE | 2020-04-14 17:23 | NUR ---
XARELTO PATIENT STATES WAS NOT ADVISED TO STOP TAKING XARELTO PRIOR TO SCHEDULED PROCEDURE. STATES LAST DOSE WAS TAKEN ON 04/13/2020. KIERRA PHILLIPS NOTIFIED. ORDERS RECEIVED TO NOTIFY PATIENT NOT TO TAKE XARELTO ON 04/14/2020 OR ON DOS. PATIENT NOTIFIED. OK TO PROCEED WITH SCHEDULED PROCEDURE PER KIERRA PHILLIPS.
[~2020-04-15] VITALS: Ht 162.6 cm; Wt 62.6 kg
[~2020-04-15 09:00] MED LIST changes: -AMLO5TAB9 PO; -ASPI-1443 PO; -LOSA1TAB42 PO; -NAPR-1023 PO; +SODIUM CHLORIDE 0.9% 1000ML 1,000 ML IV SCH
[2020-04-15 09:11] VITALS: BP 157/97
[2020-04-15] MEDS ORDERED: RIVA20TA PO (10:11)
[2020-04-15] MEDS ORDERED: AMLO2.5T4 PO (10:11)
[2020-04-15] MEDS ORDERED: LOSA1TAB37 PO (10:11)
[2020-04-15] MEDS ORDERED: ACET-2521 PO (10:11)
[2020-04-15] MEDS ORDERED: BUDE1AMP IH (11:54)
[2020-04-15] MEDS ORDERED: FLUT16H NASAL (11:54)
[2020-04-15] MEDS ORDERED: ALBU90AE IH (11:54)
[2020-04-15] MEDS ORDERED: CEFAZOLIN SODIUM 1 GM VIAL ONE ×2 (12:00→12:21)
[2020-04-15] MEDS ORDERED: BUPIVACAINE/PF 0.25% 10ML VIAL IJ ONE ×2 (12:01)
[2020-04-15] MEDS ORDERED: LIDOCAINE HCL 1% MDV 50ML VIAL ONE (12:01)
[2020-04-15] MEDS ORDERED: MIDAZOLAM HCL 1 MG/ML 2ML VIAL ONE ×2 (12:01→12:34)
[2020-04-15] MEDS ORDERED: MEPERIDINE-PF 25 MG/ML SYG ONE ×2 (12:01→12:34)
[2020-04-15 13:15] VITALS: BP 153/121
== END 2020-04-15 13:35 | disposition home or self-care (01) ==
LOC: DAH 09:00
PROVIDERS: ATTEND Internal Medicine Cardiovascular Disease
DX: I42.0 Dilated cardiomyopathy (principal); I10 Essential (primary) hypertension; E78.5 Hyperlipidemia, unspecified; E11.9 Type 2 diabetes mellitus without complications; J44.9 Chronic obstructive pulmonary disease, unspecified; Z79.01 Long term (current) use of anticoagulants; Z79.899 Other long term (current) drug therapy; Z53.8 Procedure and treatment not carried out for other reasons
CPT/HCPCS: 36415; 80048; 85025; 85610; 85730; 93005; A4215; A4216; A4221; A4222; A4223 ×3; A4606; A4663; C1894; J0690 ×2; J2175 ×2; J2250 ×2; J3490 ×3; J7030

== ENCOUNTER → 2020-09-01 | Outpatient (CLI) | payer MEDICARE ==
[~2020-09-01] MED LIST changes: +ACET-2521 PO; +ALBU90AE IH; +AMLO2.5T4 PO; -ASCO500T20 PO; +BUDE1AMP IH; +FLUT16H NASAL; +LOSA1TAB37 PO; -MONT10TA26 PO; +MONT10TA32 PO; +RIVA20TA PO; -SODIUM CHLORIDE 0.9% 1000ML 1,000 ML IV SCH; -TERA5CAP4 PO
== END | disposition home or self-care (01) ==
LOC: OIH 12:46
PROVIDERS: ATTEND Anesthesiology Pain Medicine
DX: M51.36 Other intervertebral disc degeneration, lumbar region (principal); M54.5 Low back pain; M85.80 Other specified disorders of bone density and structure, unspecified site
CPT/HCPCS: 72114; 72220

== ENCOUNTER → 2020-10-05 | Outpatient (CLI) | payer MEDICARE | END | disposition home or self-care (01) | LOC: SHCH 10:55 | PROVIDERS: ATTEND Internal Medicine Cardiovascular Disease | DX: I25.10 Atherosclerotic heart disease of native coronary artery without angina pectoris (principal); R55 Syncope and collapse | CPT/HCPCS: 93306; 93356 ==

== ENCOUNTER → 2021-06-14 | Outpatient (CLI) | payer MEDICARE ==
[~2021-06-14] MED LIST changes: +MONT-39 PO; -MONT10TA32 PO
== END | disposition home or self-care (01) ==
LOC: SHCH 08:55
PROVIDERS: ATTEND Internal Medicine Cardiovascular Disease
DX: I11.9 Hypertensive heart disease without heart failure (principal); I35.8 Other nonrheumatic aortic valve disorders; I34.8 Other nonrheumatic mitral valve disorders; E11.9 Type 2 diabetes mellitus without complications; E78.5 Hyperlipidemia, unspecified; Q21.1 Atrial septal defect
CPT/HCPCS: 93306; 93356

== ENCOUNTER 2021-09-20 10:07 | Emergency (ER) | payer MEDICARE ==
[~2021-09-20] VITALS: Ht 162.6 cm; Wt 63.5 kg
[2021-09-20 11:25] LABS: HEMATOCRIT 42.9 % (36-48); MEAN CORPUSCULAR HEMOGLOBIN 29.8 pg (27.0-33.0); MEAN CORPUSCULAR HGB CONC 31.5 g/dL (32.0-36.0); MEAN CORPUSCULAR VOLUME 94.7 fL (79-99); PLATELET COUNT (AUTO) 326 K/uL (130-400); RED BLOOD CELL COUNT(AUTO) 4.53 MIL/uL (4.00-5.50); RED CELL DISTRIBUTION WIDTH 13.5 % (11.0-15.5); WHITE BLOOD COUNT (AUTO) 13.6 K/uL (4.8-10.8)
[2021-09-20 11:45] LABS: BASOPHILS % (MANUAL) 1 % (0-2); LYMPHOCYTES % (MANUAL) 30 % (22-44); MAN.DIFF COMMENT-IMPRESSION MANUAL DIFFERENTIAL; MONOCYTES % (MANUAL) 3 % (2-9); PLATELET MORPHOLOGY COMMENT ADEQUATE; REACTIVE LYMPHOCYTES 8 % (0-0); SEGMENTED NEUTROPHILS % 58 % (40-70)
[2021-09-20 11:55] LABS: ALBUMIN 3.7 g/dL (3.5-5.0); BILIRUBIN,TOTAL 1.6 mg/dL (0.2-1.0); CREATININE 1.1 mg/dL (0.5-1.5); POTASSIUM 3.9 mmol/L (3.5-5.1); TOTAL PROTEIN, SERUM 8.3 g/dL (6.0-8.3)
[2021-09-20] MEDS ORDERED: SACC250C9 PO (12:18)
[2021-09-20] MEDS ORDERED: LACT10PA5 PO (12:18)
[2021-09-20 12:56] VITALS: BP 132/65
== END 2021-09-20 12:57 | disposition home or self-care (01) ==
LOC: EDH 10:07
DX: R10.84 Generalized abdominal pain (principal); K59.00 Constipation, unspecified; I10 Essential (primary) hypertension; Z79.899 Other long term (current) drug therapy; J45.909 Unspecified asthma, uncomplicated
CPT/HCPCS: 36415; 74018; 80053; 85025

== ENCOUNTER 2022-04-02 08:37 | Inpatient (IN) | payer MEDICARE ==
[~2022-04-02] VITALS: Ht 162.6 cm; Wt 65.2 kg
[2022-04-02] VITALS (33 sets, daily range): BP systolic 121–177; BP diastolic 52–100
[~2022-04-02 08:37] MED LIST changes: -ACET-2521 PO; -ALBU90AE IH; -AMLO2.5T4 PO; -BUDE1AMP IH; +CALC-1125 PO; +CEPH500B PO; -DIPH25CA85 PO; -FLUT16H NASAL; +FURO20TA6 PO; +HYDR-4153 PO; +L.AC1CAP6 PO; +LEVE-43 PO; -LOSA1TAB37 PO; +MAGN400T51 PO; +MECL-160 PO; +METO-391 PO; -PRAM0.129 PO; +SACC250C9 PO; +VALS160T29 PO
[2022-04-02] MEDS ORDERED: FAMOTIDINE 20MG VIAL IV ONE (09:00)
[2022-04-02] MEDS ORDERED: ONDANSETRON 4MG INJ IVP ONE (09:00)
[2022-04-02] MEDS ORDERED: MECLIZINE HCL 25 MG TABLET PO ONE (09:00)
[2022-04-02 09:19] LABS: HEMATOCRIT 39.8 % (36-48); MEAN CORPUSCULAR HEMOGLOBIN 28.5 pg (27.0-33.0); MEAN CORPUSCULAR HGB CONC 31.2 g/dL (32.0-36.0); MEAN CORPUSCULAR VOLUME 91.5 fL (79-99); PLATELET COUNT (AUTO) 282 K/uL (130-400); RED BLOOD CELL COUNT(AUTO) 4.35 MIL/uL (4.00-5.50); RED CELL DISTRIBUTION WIDTH 12.5 % (11.0-15.5); WHITE BLOOD COUNT (AUTO) 10.6 K/uL (4.8-10.8)
[2022-04-02 09:24] LABS: APPEARANCE,URINE CLOUDY (CLEAR); BILIRUBIN,URINE NEGATIVE (NEGATIVE); COLOR,URINE LIGHT-YELLOW (YELLOW); GLUCOSE, URINE (UA) NEGATIVE (NEGATIVE); KETONES,URINE NEGATIVE (NEGATIVE); LEUKOCYTE ESTERASE ,URINE 500 Leu/uL (NEGATIVE); NITRATE,URINE 1+ (NEGATIVE); OCCULT BLOOD,URINE NEGATIVE (NEGATIVE); PROTEIN,URINE 50 mg/dL (NEGATIVE); UROBILINOGEN,URINE 0.2 mg/dL (0.2-1.0)
[2022-04-02 09:31] LABS: POTASSIUM 3.6 mmol/L (3.5-5.1)
[2022-04-02 09:34] LABS: BACTERIA,URINE FEW /HPF (None Seen); MUCUS,URINE RARE LPF (None Seen); SQUAMOUS EPITHELIAL CELL,UR RARE /HPF (0-2); WBC,URINE 51-100 /HPF (0-1)
[2022-04-02 09:53] LABS: BASOPHILS % (MANUAL) 3 % (0-2); EOSINOPHILS % (MANUAL) 1 % (1-6); LYMPHOCYTES % (MANUAL) 12 % (22-44); MAN.DIFF COMMENT-IMPRESSION MANUAL DIFFERENTIAL; MONOCYTES % (MANUAL) 4 % (2-9); PLATELET MORPHOLOGY COMMENT ADEQUATE; SEGMENTED NEUTROPHILS % 80 % (40-70)
[2022-04-02 09:56] LABS: ALBUMIN 3.4 g/dL (3.5-5.0); TOTAL PROTEIN, SERUM 7.2 g/dL (6.0-8.3)
[2022-04-02] MEDS ORDERED: CEFTRIAXONE 1G VIAL IVP SCH (10:00)
[2022-04-02] MEDS ORDERED: IOHEXOL 350 MG/ML 100ML INFUS..BTL IV ONE (10:11)
[2022-04-02] MEDS ORDERED: ONDANSETRON 4MG INJ IV PRN (15:14)
[2022-04-02] MEDS: PANTOPRAZOLE 40 MG/VIAL IVP SCH (15:39)
[2022-04-02 17:04] LABS: INR 1.06 (0.85-1.15); PROTHROMBIN TIME 11.5 SEC (9.6-11.6)
[2022-04-02 17:05] LABS: PARTIAL THROMBOPLASTIN TIME 27.8 SEC (26.3-35.5)
[2022-04-02 17:06] LABS: MAGNESIUM 1.7 mg/dL (1.80-2.40); PHOSPHORUS 3.7 mg/dL (2.5-4.9)
[2022-04-02] MEDS ORDERED: PANT40TA PO (17:08)
[2022-04-02] MEDS ORDERED: POLY17PO4 PO (17:08)
[2022-04-02] MEDS ORDERED: BENZ-70 PO (17:08)
[2022-04-02] MEDS ORDERED: RIVA20TA PO (17:08)
[2022-04-02] MEDS ORDERED: LACT1CAP81 PO (17:08)
[2022-04-02] MEDS ORDERED: PRAV10TA39 PO (17:08)
[2022-04-02] MEDS ORDERED: DIPH25CA53 PO (17:08)
[2022-04-02] MEDS ORDERED: LEVE-43 PO (17:08)
[2022-04-02] MEDS ORDERED: VALS160T29 PO (17:08)
[2022-04-02] MEDS ORDERED: FLUT15.845 NS (17:08)
[2022-04-02] MEDS ORDERED: PRAM0.129 PO (17:08)
[2022-04-02] MEDS ORDERED: GABA-529 PO (17:08)
[2022-04-02] MEDS ORDERED: FURO20TA6 PO (17:08)
[2022-04-02] MEDS ORDERED: MAGN100T5 PO (17:14)
[2022-04-02] MEDS: MAGNESIUM 2GM PREMIX 50ML 50 ML IV PRN (17:21)
[2022-04-02] MEDS ORDERED: POTASSIUM CHLORIDE 20MEQ/100ML 100 ML IV PRN (17:30)
[2022-04-02] MEDS ORDERED: LIDOCAINE HCL-MPF 1% 2ML VIAL IV PRN (17:30)
[2022-04-02] MEDS ORDERED: PHARMACY COMMUNICATION MISC SCH (18:00)
[2022-04-02] MEDS ORDERED: HUMAN PROTHROMBIN COMPLX(PCC) 500 UNIT KIT IV ONE (18:30)
[2022-04-02] MEDS: NICARDIPINE 25 MG in 0.9% NACL 250ML IV SCH (18:47)
[2022-04-02] MEDS: GABAPENTIN 100 MG CAPSULE PO SCH (22:14)
[2022-04-03] VITALS (50 sets, daily range): BP systolic 113–157; BP diastolic 46–98
[2022-04-03] MEDS ORDERED: ACETAMINOPHEN WITH CODEINE 1 TAB TAB PO ONE (00:30)
[2022-04-03 00:42] LABS: CREATININE 0.8 mg/dL (0.5-1.5); POTASSIUM 4.1 mmol/L (3.5-5.1)
[2022-04-03 03:31] LABS: HEMATOCRIT 37.7 % (36-48); MEAN CORPUSCULAR HEMOGLOBIN 28.5 pg (27.0-33.0); MEAN CORPUSCULAR HGB CONC 31.6 g/dL (32.0-36.0); MEAN CORPUSCULAR VOLUME 90.4 fL (79-99); RED BLOOD CELL COUNT(AUTO) 4.17 MIL/uL (4.00-5.50); RED CELL DISTRIBUTION WIDTH 12.6 % (11.0-15.5); WHITE BLOOD COUNT (AUTO) 8.2 K/uL (4.8-10.8)
[2022-04-03 03:43] LABS: CREATININE 0.8 mg/dL (0.5-1.5); POTASSIUM 3.9 mmol/L (3.5-5.1)
[2022-04-03] MEDS ORDERED: NICARDIPINE 25MG INJ IV ONE (06:15)
[2022-04-03] MEDS: NICARDIPINE 25 MG in 0.9% NACL 250ML IV SCH (06:24)
[2022-04-03] MEDS: PANTOPRAZOLE 40 MG/VIAL IVP SCH (09:08)
[2022-04-03] MEDS: GABAPENTIN 100 MG CAPSULE PO SCH ×2 (09:50→20:15)
[2022-04-03] MEDS: LEVETIRACETAM 500 MG TABLET PO SCH (09:51)
[2022-04-03] MEDS: AMLODIPINE 5 MG TAB PO SCH (09:51)
[2022-04-03] MEDS: METOPROLOL TARTRATE 25 MG TAB PO SCH ×2 (09:51→14:22)
[2022-04-03] MEDS ORDERED: CEFTRIAXONE 1G VIAL IV SCH (15:00)
[2022-04-03] MEDS ORDERED: IPRATROPIUM 0.5 MG/2.5 ML INH IH PRN (17:30)
[2022-04-03] MEDS ORDERED: ONDANSETRON 4MG INJ IV PRN (19:30)
[2022-04-03] MEDS ORDERED: METOPROLOL TARTRATE 25 MG TAB PO SCH (21:00)
[2022-04-04] VITALS (16 sets, daily range): BP systolic 104–162; BP diastolic 47–110
[2022-04-04 04:12] LABS: BASOPHILS % (AUTO) 0.5 % (0.0-5.0); EOSINOPHILS % (AUTO) 3.9 % (0.0-8.0); HEMATOCRIT 39.8 % (36-48); LYMPHOCYTES % (AUTO) 21.4 % (21.0-51.0); MEAN CORPUSCULAR HEMOGLOBIN 28.3 pg (27.0-33.0); MEAN CORPUSCULAR HGB CONC 30.7 g/dL (32.0-36.0); MEAN CORPUSCULAR VOLUME 92.3 fL (79-99); MONOCYTES % (AUTO) 9.3 % (3.0-13.0); NEUTROPHILS % (AUTO) 64.7 % (40.0-77.0); PLATELET COUNT (AUTO) 278 K/uL (130-400); RED BLOOD CELL COUNT(AUTO) 4.31 MIL/uL (4.00-5.50); RED CELL DISTRIBUTION WIDTH 12.5 % (11.0-15.5); WHITE BLOOD COUNT (AUTO) 9.3 K/uL (4.8-10.8)
[2022-04-04 04:19] LABS: HEMOGLOBIN A1C 7.4 % (4.0-6.0)
[2022-04-04 04:28] LABS: ALBUMIN 3.1 g/dL (3.5-5.0); MAGNESIUM 1.9 mg/dL (1.80-2.40); PHOSPHORUS 3.8 mg/dL (2.5-4.9); TOTAL PROTEIN, SERUM 7.3 g/dL (6.0-8.3)
[2022-04-04] MEDS: BENZONATATE 100 MG CAPSULE PO SCH ×3 (09:04→20:01)
[2022-04-04] MEDS: METOPROLOL TARTRATE 25 MG TAB PO SCH ×2 (09:04→20:00)
[2022-04-04] MEDS: AMLODIPINE 5 MG TAB PO SCH (09:04)
[2022-04-04] MEDS: LEVETIRACETAM 500 MG TABLET PO SCH (09:05)
[2022-04-04] MEDS: GABAPENTIN 100 MG CAPSULE PO SCH ×2 (09:05→20:01)
[2022-04-04] MEDS: PANTOPRAZOLE 40 MG/VIAL IVP SCH (09:06)
[2022-04-04] MEDS: IPRATROPIUM/ALBUTEROL SULFATE 3 ML SOLUTION IH SCH ×3 (11:50→23:10)
[2022-04-04] MEDS: CEFTRIAXONE 2GM VIAL IVP SCH (16:14)
[2022-04-04] MEDS: SODIUM CHLORIDE 3% FOR INHALATION 4 ML/AMP VIAL.NEB IH SCH (18:21)
[2022-04-04] MEDS: PRAMIPEXOLE DI-HCL 0.25 MG TABLET PO SCH (20:00)
[2022-04-05 03:37] LABS: BASOPHILS % (AUTO) 0.4 % (0.0-5.0); EOSINOPHILS % (AUTO) 1.4 % (0.0-8.0); HEMATOCRIT 38.8 % (36-48); LYMPHOCYTES % (AUTO) 16.5 % (21.0-51.0); MEAN CORPUSCULAR HEMOGLOBIN 28.4 pg (27.0-33.0); MEAN CORPUSCULAR HGB CONC 31.7 g/dL (32.0-36.0); MEAN CORPUSCULAR VOLUME 89.6 fL (79-99); MONOCYTES % (AUTO) 9.3 % (3.0-13.0); NEUTROPHILS % (AUTO) 71.9 % (40.0-77.0); PLATELET COUNT (AUTO) 258 K/uL (130-400); RED BLOOD CELL COUNT(AUTO) 4.33 MIL/uL (4.00-5.50); RED CELL DISTRIBUTION WIDTH 12.4 % (11.0-15.5); WHITE BLOOD COUNT (AUTO) 10.1 K/uL (4.8-10.8)
[2022-04-05 04:00] VITALS: BP 157/79
[2022-04-05 05:12] LABS: MAGNESIUM 1.8 mg/dL (1.80-2.40); POTASSIUM 3.6 mmol/L (3.5-5.1)
[2022-04-05] MEDS: MAGNESIUM 2GM PREMIX 50ML 50 ML IV PRN (05:20)
[2022-04-05] MEDS: IPRATROPIUM/ALBUTEROL SULFATE 3 ML SOLUTION IH SCH ×4 (06:27→23:12)
[2022-04-05] MEDS: SODIUM CHLORIDE 3% FOR INHALATION 4 ML/AMP VIAL.NEB IH SCH ×2 (06:28→18:00)
[2022-04-05 08:00] VITALS: BP 149/67
[2022-04-05] MEDS: CEFTRIAXONE 2GM VIAL IVP SCH (11:21)
[2022-04-05] MEDS: METRONIDAZOLE 500MG/100ML BAG 100 ML IVPB SCH ×3 (11:21→21:01)
[2022-04-05] MEDS: GABAPENTIN 100 MG CAPSULE PO SCH ×2 (11:21→20:21)
[2022-04-05] MEDS: BENZONATATE 100 MG CAPSULE PO SCH ×3 (11:22→20:20)
[2022-04-05] MEDS: PANTOPRAZOLE 40 MG/VIAL IVP SCH (11:22)
[2022-04-05] MEDS: LEVETIRACETAM 500 MG TABLET PO SCH (11:22)
[2022-04-05] MEDS: AMLODIPINE 5 MG TAB PO SCH (11:22)
[2022-04-05] MEDS: METOPROLOL TARTRATE 25 MG TAB PO SCH ×2 (11:23→20:20)
[2022-04-05 12:00] VITALS: BP 151/70
[2022-04-05 16:00] VITALS: BP 126/91
[2022-04-05] MEDS: PRAMIPEXOLE DI-HCL 0.25 MG TABLET PO SCH (20:20)
[2022-04-05 20:43] VITALS: BP 147/64
[2022-04-06 00:04] VITALS: BP 162/75
[2022-04-06 04:05] LABS: BASOPHILS % (AUTO) 0.3 % (0.0-5.0); EOSINOPHILS % (AUTO) 2.1 % (0.0-8.0); HEMATOCRIT 36.3 % (36-48); LYMPHOCYTES % (AUTO) 18.8 % (21.0-51.0); MEAN CORPUSCULAR HEMOGLOBIN 28.8 pg (27.0-33.0); MEAN CORPUSCULAR HGB CONC 31.4 g/dL (32.0-36.0); MEAN CORPUSCULAR VOLUME 91.7 fL (79-99); MONOCYTES % (AUTO) 10.3 % (3.0-13.0); NEUTROPHILS % (AUTO) 67.5 % (40.0-77.0); PLATELET COUNT (AUTO) 247 K/uL (130-400); RED BLOOD CELL COUNT(AUTO) 3.96 MIL/uL (4.00-5.50); RED CELL DISTRIBUTION WIDTH 12.7 % (11.0-15.5); WHITE BLOOD COUNT (AUTO) 9.4 K/uL (4.8-10.8)
[2022-04-06 04:18] LABS: CREATININE 0.9 mg/dL (0.5-1.5); POTASSIUM 3.2 mmol/L (3.5-5.1)
[2022-04-06 05:22] VITALS: BP_SYST 130; BP_SYST 150; BP_DIAS 72
[2022-04-06] MEDS: METRONIDAZOLE 500MG/100ML BAG 100 ML IVPB SCH ×2 (05:29→14:47)
[2022-04-06] MEDS ORDERED: KCL 20 MEQ ERTAB PO PRN (05:30)
[2022-04-06] MEDS ORDERED: POTASSIUM CHLORIDE 10% ELIXIR 20 MEQ/15 ML UDCUP PO PRN (05:30)
[2022-04-06] MEDS: IPRATROPIUM/ALBUTEROL SULFATE 3 ML SOLUTION IH SCH ×2 (06:57→11:39)
[2022-04-06] MEDS: SODIUM CHLORIDE 3% FOR INHALATION 4 ML/AMP VIAL.NEB IH SCH (06:57)
[2022-04-06 08:30] VITALS: BP 144/70
[2022-04-06] MEDS: BENZONATATE 100 MG CAPSULE PO SCH ×2 (09:11→14:46)
[2022-04-06] MEDS: AMLODIPINE 5 MG TAB PO SCH (09:12)
[2022-04-06] MEDS: GABAPENTIN 100 MG CAPSULE PO SCH (09:12)
[2022-04-06] MEDS: METOPROLOL TARTRATE 25 MG TAB PO SCH (09:12)
[2022-04-06] MEDS: LEVETIRACETAM 500 MG TABLET PO SCH (09:12)
[2022-04-06] MEDS: PANTOPRAZOLE 40 MG/VIAL IVP SCH (09:13)
[2022-04-06 11:58] VITALS: BP 133/69
[2022-04-06] MEDS: CEFTRIAXONE 2GM VIAL IVP SCH (14:47)
== END 2022-04-06 16:40 | disposition short-term general hospital (02) | DRG 64 ==
LOC: EDH 08:37 → EDHIP 14:49 → 2BH 16:21 → 2DH 04-04 23:32
PROVIDERS: ADMIT Hospitalist; ATTEND Hospitalist
DX: I61.4 Nontraumatic intracerebral hemorrhage in cerebellum (principal); J96.01 Acute respiratory failure with hypoxia; N39.0 Urinary tract infection, site not specified; I50.40 Unspecified combined systolic (congestive) and diastolic (congestive) heart failure; Z20.822 Contact with and (suspected) exposure to COVID-19; E11.65 Type 2 diabetes mellitus with hyperglycemia; I11.0 Hypertensive heart disease with heart failure; M81.0 Age-related osteoporosis without current pathological fracture; H70.93 Unspecified mastoiditis, bilateral; G40.901 Epilepsy, unspecified, not intractable, with status epilepticus; J32.0 Chronic maxillary sinusitis; B96.20 Unspecified Escherichia coli [E. coli] as the cause of diseases classified elsewhere; E66.9 Obesity, unspecified; E78.5 Hyperlipidemia, unspecified; G25.81 Restless legs syndrome; K21.9 Gastro-esophageal reflux disease without esophagitis; G89.29 Other chronic pain; M54.50 Low back pain, unspecified; I25.10 Atherosclerotic heart disease of native coronary artery without angina pectoris; I48.91 Unspecified atrial fibrillation; J32.2 Chronic ethmoidal sinusitis; J44.9 Chronic obstructive pulmonary disease, unspecified; J84.10 Pulmonary fibrosis, unspecified; I25.2 Old myocardial infarction; Z86.711 Personal history of pulmonary embolism; Z74.01 Bed confinement status; Z79.01 Long term (current) use of anticoagulants; Z86.73 Personal history of transient ischemic attack (TIA), and cerebral infarction without residual deficits; Z83.3 Family history of diabetes mellitus; Z79.899 Other long term (current) drug therapy
CPT/HCPCS: 36415; 70450; 70544; 70547; 70551; 71045; 74177; 78315; 80048; 80053; 80061; 81001; 82948; 83036; 83735; 84100; 84145; 84484; 85025; 85027; 85610; 85651; 85730; 87077; 87088; 87186; 87635; 87804; 92507; 92522; 92610; 93005; 93306; 94640; 94667; 94668; 97039; A9503; C9113; C9803; G0378; J0696; J2405; J3475; J3480; J3490; J7050; Q9967